=== PATIENT | male | born 1975 | race Caucasian/White ===

== ENCOUNTER 2016-07-13 16:59 | Emergency (ER) | payer MEDICAID, OTHER ==
[~2016-07-13] VITALS: Ht 188 cm; Wt 94.3 kg
[~2016-07-13 16:59] MED LIST: AMOX500C2 PO; HYDR-1189 PO; LISI-694 PO; LOSA25TA3 PO; METF1000 PO; NEU100 PO
[2016-07-13 17:06] VITALS: BP 143/86; PULSE 97; RESP 20; TEMP 98.2; O2SAT 96
--- NOTE | 2016-07-13 18:00 | NUR ---
Placed in room 03 . Placed on vehicle monitor technician, blood pressure machine and pulse oximeter. To gown for exam. Side rails up.
[2016-07-13 18:17] LABS: BASOPHILS % (AUTO) 0.6 % (0.0-2.0); EOSINOPHILS # (AUTO) 0.1 K/uL (0.0-0.4); EOSINOPHILS % (AUTO) 1.5 % (0.0-4.0); HEMATOCRIT 44.8 % (36-54); LYMPHOCYTES # (AUTO) 1.7 K/uL (1.0-5.5); MEAN CORPUSCULAR HEMOGLOBIN 29 pg (27-31); MEAN CORPUSCULAR HGB CONC 34 % (32-36); MEAN CORPUSCULAR VOLUME 86 fL (79.0-98.0); MONOCYTES # (AUTO) 0.9 K/uL (0.0-1.0); MONOCYTES % (AUTO) 11.4 % (1.7-9.3); NEUTROPHILS # (AUTO) 4.9 K/uL (1.8-7.7); NEUTROPHILS % (AUTO) 64.5 % (40.0-70.0); PLATELET COUNT (AUTO) 218 K/uL (130-430); RED BLOOD CELL COUNT(AUTO) 5.23 MIL/uL (4.2-6.2); RED CELL DISTRIBUTION WIDTH 11.8 % (9.0-15.0); WHITE BLOOD COUNT (AUTO) 7.6 K/uL (4.8-10.8)
[2016-07-13] MEDS ORDERED: KETOROLAC TROMETHAMINE 30 MG VIAL IVP ONE (18:30)
[2016-07-13] MEDS ORDERED: VANCOMYCIN HCL 1,000 MG in NS 250 ML IV ONE (18:30)
[2016-07-13 18:42] LABS: INR 0.9 (0.80-1.20); PROTHROMBIN TIME 10.2 SECS (9.5-12.5)
[2016-07-13 18:49] LABS: CREATININE 0.97 mg/dL (0.55-1.30); POTASSIUM 4.1 mmol/L (3.5-5.1)
[2016-07-13 19:02] LABS: ALBUMIN 3.7 g/dL (3.4-4.8); TOTAL BILIRUBIN 0.3 mg/dL (0.0-1.0); TOTAL PROTEIN, SERUM 7.8 g/dL (6.4-8.3)
--- NOTE | 2016-07-13 19:15 | NUR ---
Pt was on a hike two weeks ago and noticed his L foot was hurting and possibly infected. Pt is a diabetic. Pt states he cant put any weight on it. Will continue to monitor. No other injuries or complaints mentioned/noted. No distress noted.
[2016-07-13] MEDS ORDERED: INSULIN REGULAR, HUMAN 10 UNITS/0.1 ML INJ IVP ONE (19:30)
--- NOTE | 2016-07-13 19:30 | NUR ---
# 20 gauge angiocath placed to L forearm. Use of asceptic technique. Opsite placed over site. Blood return noted. Flushed with 10 cc of normal saline. No evidence of infiltration noted. Patient tolerated well.
--- NOTE | 2016-07-13 19:40 | NUR ---
ER Dr. Elizabeth at bedside examining patient.
[2016-07-13] MEDS ORDERED: VANCOMYCIN HCL 1000 MG/VIAL IV ONE (19:42)
--- NOTE | 2016-07-13 20:10 | NUR ---
Pt stated the levaquin was starting to itch. IV fluids stopped and Dr. Elizabeth notified.
[2016-07-13] MEDS ORDERED: DIPHENHYDRAMINE INJ 50 MG/ML VIAL ONE (20:23)
[2016-07-13] MEDS ORDERED: DIPHENHYDRAMINE INJ 50 MG/ML VIAL IVP ONE (20:30)
--- NOTE | 2016-07-13 22:45 | NUR ---
Pt unanle to give urine after given plenty of fluids. Dr. Elizabeth made aware.
[2016-07-13 23:00] VITALS: BP 149/60; PULSE 72; RESP 18; TEMP 97.6; O2SAT 96
--- NOTE | 2016-07-13 23:00 | NUR ---
Patient given written and verbal discharge instructions and verbalizes understanding. ER MD discussed with patient the results and treatment provided. Patient in stable condition. ID arm band removed. IV catheter removed intact and dressing applied, no active bleeding. Rx of Metformin, cipro, motrin, and bactrim given. Patient educated on pain management and to follow up with PMD. Pain Scale 0/10. Opportunity for questions provided and answered.
== END 2016-07-13 23:00 | disposition home or self-care (01) ==
LOC: SED 16:59
DX: L03.116 Cellulitis of left lower limb (principal); E11.40 Type 2 diabetes mellitus with diabetic neuropathy, unspecified; Z89.421 Acquired absence of other right toe(s)
CPT/HCPCS: 36415; 73630; 80053; 82962; 83605; 85025; 85610; 85730; 87040; 96365; 96366; 96368; 96375; 99285; J1200; J1885; J1956; J3370; J7050; J1815; J7030

== ENCOUNTER 2016-07-14 09:28 | Inpatient (IN) | payer MEDICAID ==
[~2016-07-14] VITALS: Ht 188 cm; Wt 94.3 kg
[2016-07-14 09:50] VITALS: BP 143/87; PULSE 84; RESP 16; TEMP 99.8; O2SAT 98
--- NOTE | 2016-07-14 09:50 | NUR ---
Patient to ER bed 5 to gown for evaluation. Side rails up. Assumed care of patient.
--- NOTE | 2016-07-14 09:55 | NUR ---
ER Dr. Jacob at bedside examining patient.
[2016-07-14] MEDS ORDERED: VANCOMYCIN HCL 1,000 MG in NS 250 ML IV ONE (10:00)
--- NOTE | 2016-07-14 10:30 | NUR ---
Pt brought by self , A&Ox4, pt c/o L foot ulcer, pain 5/10, skin pink and warm,cap refill <3, VSS, ambulatory. Hx of diabetes, pt seen in the ER yesterday, given antibiotics IV.
[2016-07-14 10:32] LABS: BASOPHILS % (AUTO) 0.5 % (0.0-2.0); EOSINOPHILS # (AUTO) 0.1 K/uL (0.0-0.4); EOSINOPHILS % (AUTO) 1.8 % (0.0-4.0); HEMATOCRIT 44.9 % (36-54); LYMPHOCYTES # (AUTO) 1.2 K/uL (1.0-5.5); LYMPHOCYTES % (AUTO) 18.7 % (20.5-51.5); MEAN CORPUSCULAR HEMOGLOBIN 29 pg (27-31); MEAN CORPUSCULAR HGB CONC 33 % (32-36); MEAN CORPUSCULAR VOLUME 86 fL (79.0-98.0); MONOCYTES # (AUTO) 0.6 K/uL (0.0-1.0); NEUTROPHILS # (AUTO) 4.6 K/uL (1.8-7.7); PLATELET COUNT (AUTO) 210 K/uL (130-430); RED BLOOD CELL COUNT(AUTO) 5.22 MIL/uL (4.2-6.2); RED CELL DISTRIBUTION WIDTH 11.8 % (9.0-15.0); WHITE BLOOD COUNT (AUTO) 6.5 K/uL (4.8-10.8)
[2016-07-14 10:36] LABS: CALCIUM 8.6 mg/dL (8.4-11.0); CREATININE 0.89 mg/dL (0.55-1.30); POTASSIUM 4.2 mmol/L (3.5-5.1)
[2016-07-14] MEDS ORDERED: VANCOMYCIN HCL 1000 MG/VIAL IV ONE (10:41)
[2016-07-14 10:42] LABS: ALBUMIN 3.6 g/dL (3.4-4.8); TOTAL BILIRUBIN 0.4 mg/dL (0.0-1.0); TOTAL PROTEIN, SERUM 7.5 g/dL (6.4-8.3)
[2016-07-14] MEDS ORDERED: INSULIN REGULAR, HUMAN 100 UNITS/ML, 10 ML VIAL IVP ONE (10:45)
[2016-07-14] MEDS ORDERED: NACL 0.9% 1,000 ML IV ONE (10:45)
[2016-07-14] MEDS ORDERED: INSULIN REGULAR, HUMAN 10 UNITS/0.1 ML INJ ONE (10:58)
--- NOTE | 2016-07-14 11:00 | NUR ---
Patient will be admitted to care of Dr Montejo. Admitted to Medsurg unit. Will go to room 135. Belongings list completed. Summary report printed. Report given to admitting RN .
--- NOTE | 2016-07-14 11:08 | NUR ---
ADMISSION: The patient, MYA WEBSTER, 41 y/o, M admitted by SEBASTIEN SLAUGHTER MD, was given written information regarding hospital policies, unit procedures and contact persons.
[2016-07-14 11:17] VITALS: BP 143/94; PULSE 78; RESP 17; TEMP 98.1; O2SAT 97
--- NOTE | 2016-07-14 11:30 | NUR ---
admission notes rec patient from er with a dx of diabetic foot ulcer. awake alert with ivpb of vanco infusing well from er. pt stated that he went hiking 2 weeks ago and started to having pain on his l plantar foot. no drainage noted. admission care rendered. resp easy and unlabored. no sob noted. bed in low position and side rails up and locked. call light provided and know when to call for assists.
--- NOTE | 2016-07-14 11:55 | NUR ---
MD CALL Dr Zane lincoln, awaiting call back for pain medications.
[2016-07-14] MEDS ORDERED: DEXTROSE 50% JECT 50 ML DISP.SYRIN IVP PRN (12:15)
[2016-07-14] MEDS ORDERED: PIPERACILLIN/TAZO 3.375/DEX-IS 50 ML IV ONE (12:45)
[2016-07-14] MEDS ORDERED: LACTOBACILLUS RHAMNOSUS GG 1 CAP CAPSULE PO ONE (12:45)
[2016-07-14] MEDS: INSULIN REGULAR, HUMAN 100 UNITS/ML, 10 ML VIAL (novoLIN R) SUBCUT PRN ×3 (13:13→23:11)
[2016-07-14] MEDS: VANCOMYCIN HCL 1,250 MG in NS 250 ML IV SCH ×2 (15:18→22:04)
[2016-07-14] MEDS ORDERED: MORPHINE 2 MG/ML INJ. SYRINGE IVP PRN (15:45)
[2016-07-14] MEDS ORDERED: ONDANSETRON HCL 4 MG/2 ML VIAL IVP PRN (15:45)
[2016-07-14 16:00] VITALS: BP 145/89; PULSE 75; RESP 18; TEMP 97.5; O2SAT 97
--- NOTE | 2016-07-14 16:00 | NUR ---
Wound Consult: Wound consult request per Dr. Degroot. Thank you, Dr. Degroot, for the consult. Patient is awake, alert, and oriented. Skin is Good (-). Rogerio score is a 20. Patient received in a [place] bed with an Atmos-Air 9000 mattress. Past medical history: Diabetes Mellitus, Left Foot Diabetic Ulcers, Diabetic Neuropathy, and Hypertension. Current labs: WBC 6.5, RBC 5.22, Hgb 15.0, Hct 44.9, Gluc 467, Na 132. Intrinsic factors that delay wound healing: Diabetes Mellitus. Extrinsic factors: decreased mobility. Blood culture x 2 pending. Patient presents with: 1. Left Foot Appears to be a Diabetic Ulcer, present on admission. Wound bed is 95% pink tissue, 5% black eschar. Mary Jo-wound pink. No odor, no drainage. Surrounding tissue is calloused. Dry, stable. Recommend: Cleanse wound with normal saline. Pat dry. Put SurePrep onto mary jo-wound. Cover with foam dressing. Perform wound care daily, and as needed for dressing soiling or dislodgment. 2. 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 No odor, no drainage. Recommend: No dressing needed. Continue to monitor site for opening or worsening condition. Elevate offload, and float area at all times. Also recommend: Encourage and assist patient as needed with repositioning every 2 hours with pillow support, and off-load heels and pressure areas with pillows for pressure redistribution. Maintain non-weight bearing on left foot where wound is.
--- NOTE | 2016-07-14 16:00 | NUR ---
paul quintanilla wound nurse at bedside and assess pt's wound on the left plantar area. dressing care rendered. dr liriano at bedside and with orders. offered pain med but refused at this time.
--- NOTE | 2016-07-14 16:56 | NUR ---
CONSULTS CONSULT #1 ID CONSULT Spoke with Nupur regarding request for consultation with Dr. Rodriguez ([phone]) for reason: D.M foot ulcer r/o osteo. CONSULT #2 SURGICAL CONSULT Spoke with junito regarding request for consultation with Dr. Gray ([phone]) for reason: D.M foot ulcer r/o osteo. Transferred call to GUANAKITO.
[2016-07-14] MEDS: MORPHINE 4 MG/ML INJ. SYRINGE IVP PRN ×2 (17:41→23:00)
[2016-07-14] MEDS: PIPERACILLIN/TAZO 3.375/DEX-IS 50 ML IV SCH ×2 (18:00→23:06)
--- NOTE | 2016-07-14 18:00 | NUR ---
rounds requested for pain med and was given by meka corbin. due abx will be given as ordered. no hypo hyperglycemic reaction noted. no sob noted.
--- NOTE | 2016-07-14 18:41 | NUR ---
closing notes needs attended, stable. denies pain at this time. uses the bathroom with min assists and ankita well. no acute distress noted.
--- NOTE | 2016-07-14 19:40 | NUR ---
PM SHIFT ASSESSMENT Received patient in bed, aox4, vital signs stable. Denies any left foot pain at this time. Left foot with dressing CDI. IV line to left forearm intact and patent, no signs of infiltration noted. POC discussed with patient, verbalized understanding, compliant. Oriented to use call light for nurse assistance. Call light within reach, safety measures in place, will continue to monitor.
[2016-07-14 20:00] VITALS: BP 161/96; PULSE 78; RESP 20; TEMP 98; O2SAT 97
--- NOTE | 2016-07-14 20:30 | NUR ---
Paged Dr. Degroot, called back and new orders for Restoril 15 mg every Hs given for patient. Will carry out.
[2016-07-14] MEDS: LACTOBACILLUS RHAMNOSUS GG 1 CAP CAPSULE PO SCH (20:45)
[2016-07-14] MEDS: TEMAZEPAM 15 MG CAPSULE PO SCH (20:45)
--- NOTE | 2016-07-14 22:08 | NUR ---
RN ROUNDS Patient asleep, respirations even and unlabored, due medications given earlier. Restoril 15 mg po given to help promote sleep, safety measures in place, call light within reach, will continue to monitor
--- NOTE | 2016-07-14 23:21 | NUR ---
RN ROUNDS/PAIN Patient awake, c/o of pain, medicated with morphine 4 mg IVP for pain management. Educated on fall and safety precautions. Patient verbalized understanding. Due antibiotics administered. Blood sugar check this pm of 296. covered with regular insulin sliding scale per Md order. Call light within reach, will continue to monitor.
--- NOTE | 2016-07-15 00:36 | NUR ---
RN ROUNDS Patient asleep, respirations even and unlabored, vital signs stable. IV antibiotics infusing. Call light remains within reach, will continue to monitor.
[2016-07-15 01:27] VITALS: BP 140/84; PULSE 69; RESP 17; TEMP 98.7; O2SAT 96
--- NOTE | 2016-07-15 02:18 | NUR ---
RN ROUNDS Patient continues to sleep, respirations even and unlabored, safety measures in place, call light remains within reach, will continue to monitor.
[2016-07-15 04:00] VITALS: BP 127/72; PULSE 69; RESP 18; TEMP 97.9; O2SAT 97
--- NOTE | 2016-07-15 04:22 | NUR ---
RN ROUNDS Patient continues to sleep, respirations even and unlabored, vitals stable. Safety measures in place, call light remains within reach, will continue to monitor.
[2016-07-15] MEDS: PIPERACILLIN/TAZO 3.375/DEX-IS 50 ML IV SCH ×3 (05:18→18:06)
[2016-07-15] MEDS: VANCOMYCIN HCL 1,250 MG in NS 250 ML IV SCH ×3 (05:18→22:22)
[2016-07-15] MEDS: ACETAMINOPHEN 325 MG TABLET PO PRN ×2 (05:28→08:54)
--- NOTE | 2016-07-15 05:35 | NUR ---
RN ROUNDS Patient awake, c/o of headache, medicated with Tylenol for pain management, will reassess shortly. Wound care done to left foot diabetic ulcer. Cleaned with NS, applied sure prep to wound and covered with foam dressing. Patient tolerated well.
[2016-07-15] MEDS: INSULIN REGULAR, HUMAN 100 UNITS/ML, 10 ML VIAL (novoLIN R) SUBCUT PRN ×3 (06:02→18:08)
--- NOTE | 2016-07-15 06:11 | NUR ---
RN ROUNDS Patient awake, blood sugar this am of 240, covered with regular insulin sliding scale. IV line intact and patent, IV antibiotics infusing, Patient needs attended to, safety and fall precautions maintained, through out the shift, call light remains within reach, will continue to monitor until report given to am nurse.
[2016-07-15 08:00] VITALS: BP 138/88; PULSE 86; RESP 20; TEMP 98.1; O2SAT 96
--- NOTE | 2016-07-15 08:00 | NUR ---
OPENING NOTE PATIENT IS C/O SEVERE HEADACHE THROUGHOUT THE NIGHT WHICH HE BELIEVES IS CAUSED BY MORPHINE. WAS MEDICATED AT [address] SLAUGHTER PAGED FOR NEW PAIN CONTROL ORDERS
[2016-07-15] MEDS: LACTOBACILLUS RHAMNOSUS GG 1 CAP CAPSULE PO SCH ×2 (08:55→22:06)
--- NOTE | 2016-07-15 09:30 | NUR ---
MEDICATED WITH TYLENOL FOR HEADACHE
--- NOTE | 2016-07-15 10:30 | NUR ---
REASSESSMENT: HEADACHE NOW 07/10
--- NOTE | 2016-07-15 12:35 | NUR ---
DR SLAUGHTER IN TO SEE PATIENT. PER PATIENT DR SLAUGHTER OFFERED TO ADD DILAUDID TO HIS REGIME FOR THE HEADACHE
--- NOTE | 2016-07-15 12:45 | NUR ---
SPOKE WITH KONG ABOUT BG MONITORING. PT STATES HE HAS NOT CHECKED HIS OWN BG IN OVER A YEAR. HE STATES HE KNOWS WHAT HIGH AND LOW BG LOOK/FEEL LIKE AND RELIES ON HOW HE FEELS. STATES HIS FATHER IS ALSO A DIABETIC AND THEY HAVE SIMILAR SYMPTOMS. TAUGHT PT THAT BG SHOULD BE UNDER 150-120 WHILE AT HOME AND THAT THERE IS NO WA OF KNOWING HIS ACTUAL BG WITHOUT CHECKING HIS BLOOD. TOLD PT THAT WHAT WAS HAPPENING TO HIS FEET WAS ALSO HAPPENING TO HIS KIDNEYS, EYES AND HEART AND HE WOULD BE A VERY SICK MAN VERY SOON. PATIENT ALSO STATED HE IS [employer] FROM [place] AND IS IN A TREATMENT PROGRAM AND WANTS TO LEAD A HEALTHIER LIFESTYLE. BG CURRENTLY 323. COVERED WITH 8 UNITS OF INSULIN
[2016-07-15 13:00] VITALS: BP 137/94; PULSE 82; RESP 16; TEMP 97.6; O2SAT 98
--- NOTE | 2016-07-15 13:45 | NUR ---
DR SLAUGHTER PAGED FOR ORDERS FOR DILAUDID. NO ORDERS HAVE BEEN ENTERED.
[2016-07-15 15:32] VITALS: Ht 188 cm; Wt 94.3 kg
--- NOTE | 2016-07-15 16:45 | NUR ---
DR SINCLAIR IN TO SEE PATIENT. EXPLAINED TO HIM THAT PATIENT BELIEVES MORPHINE IS CAUSING HIS HEADACHES AND WANTS DILAUDID. ORDERS FOR 2MG DILAUDID Q4PRN GIVEN. DR SINCLAIR ALSO STATED PATIENT IS ON SCHEDULE FOR [address] ON 07/[address] SINCLAIR ASKED ME TO ENTER ORDERS FOR PREOP CHECKLIST AND DME FOR WOUND VAC.
[2016-07-15 17:01] VITALS: BP 117/71; PULSE 80; RESP 17; TEMP 97.2; O2SAT 96
--- NOTE | 2016-07-15 18:05 | NUR ---
PATIENT MEDICATED WITH 5 UNITS OF REGULAR INSULIN FOR BG OF 262. ANTIBIOTICS HUNG PER PROTOCOL
[2016-07-15 18:22] LABS: PROTHROMBIN TIME 10.5 SECS (9.5-12.5)
[2016-07-15] MEDS: HYDROmorphone 2 MG/ML VIAL IVP PRN ×2 (18:37→22:23)
--- NOTE | 2016-07-15 19:48 | NUR ---
CARE ENDORSED TO GUANAKITO COTTON. PATIENT NOW STATES HIS PAIN IS A 0/10. STATES HEADACHE IS GONE WELL. PATIENT REMAINS ALERT, ORIENTED NO SIGNS OF DISTRESS. ENDORSED SIGNED CONSENT AND PREOP CHECKLIST HAS BEEN STARTED. PT NEEDS UA AND WILL BE NPO AFTER MN, SCHEDULED FOR 729 SURGERY TO LEFT FOOT WITH POSSIBLE WOUND VAC APPLICATION.
--- NOTE | 2016-07-15 20:00 | NUR ---
ROUNDS PATIENT RESTING COMFORTABLY IN BED, VITALS STABLE, DENIES ANY PAIN AND DISCOMFORT AT THIS TIME. ASSESSMENT DONE AND DOCUMENTED AT THIS TIME. SEE FLOWSHEET. NEEDS ATTENDED TO. SAFETY AND FALL PRECAUTION MEASURES IN PLACED. BED IN LOW AND LOCKED POSITION. CALL LIGHT PLACED WITHIN REACH.
[2016-07-15] MEDS: TEMAZEPAM 15 MG CAPSULE PO SCH (21:00)
--- NOTE | 2016-07-15 21:00 | NUR ---
MEDICATION DUE MEDICATIONS GIVEN ORDERED, TOLERATED WELL. WILL CONTINUE TO MONITOR.
[2016-07-16] VITALS: BP 144/87; PULSE 73; RESP 16; TEMP 98.4; O2SAT 92
--- NOTE | 2016-07-16 | NUR ---
PATIENT RESTING: Patient resting quietly. No acute distress noted. Vital signs within normal range.
[2016-07-16] MEDS: PIPERACILLIN/TAZO 3.375/DEX-IS 50 ML IV SCH ×4 (00:26→17:10)
--- NOTE | 2016-07-16 02:00 | NUR ---
ROUNDS PATIENT ASLEEP, NO SOB NOTED, WILL CONTINUE TO MONITOR.
[2016-07-16 03:30] VITALS: BP 123/81; PULSE 81; RESP 18; TEMP 98.3; O2SAT 97
--- NOTE | 2016-07-16 04:00 | NUR ---
PATIENT RESTING: Patient resting quietly. No acute distress noted. Vital signs within normal range.
[2016-07-16] MEDS: HYDROmorphone 2 MG/ML VIAL IVP PRN ×4 (06:03→21:19)
[2016-07-16] MEDS: VANCOMYCIN HCL 1,250 MG in NS 250 ML IV SCH ×3 (06:14→22:30)
--- NOTE | 2016-07-16 07:20 | NUR ---
CLOSING NOTES PATIENT WAKE, VITALS STABLE, GAVE REPORT TO O. R. NURSE BEDSIDE. ALL NEEDS ATTENDED TO. SAFETY MEASURES MAINTAINED. PATIENT BROUGHT TO O.R. FOR HIS SCHEDULED DEBRIDEMENT ON HIS LEFT FOOT.
[2016-07-16 07:42] VITALS: BP 145/96; PULSE 95; RESP 18; TEMP 97.2; O2SAT 94
[2016-07-16] MEDS ORDERED: LR 1,000 ML IV ONE (07:54)
[2016-07-16] MEDS ORDERED: NALOXONE HCL 0.4 MG/ML AMP (NARCAN) IVP PRN (08:00)
[2016-07-16] MEDS ORDERED: NALBUPHINE HCL 10 MG/ML AMP IVP PRN (08:00)
[2016-07-16] MEDS ORDERED: ePHEDrine sulfate 50 MG/ML VIAL IVP PRN (08:00)
[2016-07-16] MEDS ORDERED: fentaNYL CITRATE/PF 100 MCG/2 ML AMP IVP PRN (08:00)
[2016-07-16] MEDS ORDERED: DIPHENHYDRAMINE INJ 50 MG/ML VIAL IVP PRN (08:00)
[2016-07-16] MEDS ORDERED: ONDANSETRON HCL 4 MG/2 ML VIAL IVP PRN ×2 (08:00)
--- NOTE | 2016-07-16 08:00 | NUR ---
PT IN BED, REPORT RECEIVED FROM NIGHT NURSE, PT IS AAO, IV ACCESS PATENT, PT NPO FOR DEBRIDEMENT OF FOOT WOUND. SURGERY NURSES AT BEDSIDE.
[2016-07-16] MEDS: LACTOBACILLUS RHAMNOSUS GG 1 CAP CAPSULE PO SCH ×2 (09:16→22:30)
--- NOTE | 2016-07-16 09:26 | NUR ---
DISCHARGE PLANNING DC order to arrange wound vac and home health. Confirmed contracted vendor for requested DME. [phone]. Wound care nurse was given copy of order and [facility] order form that needs to be completed, signed, and faxed to [facility]. Home Health not covered benefit under patient insurance. Called follow home health to obtain out of pocket quotes for patient. [facility] $120.00 PER VISIT [facility] $200.00 Initial visit $150.00 per visit after initial [facility] $200.00 Initial visit $175.00 per visit after initial. Will also provide patient with copy of local critical access hospital for follow up if unable to pay out of pocket for home health. Addendum: 07/16/16 at 1159 by Reema Hodges DP Per wound care nurse no wound vac placed. Called [facility] [phone] spoke with [place] who cancelled DME order for wound vac.
--- NOTE | 2016-07-16 10:00 | NUR ---
pt in bed, no sob, no distress, vitals are stable, c/o of little pain on the foot, told pt that pain med can be provided as needed.
--- NOTE | 2016-07-16 11:20 | NUR ---
Wound Re-Evaluation: Patient is awake, alert, and oriented. Skin is Good (-). Rogerio score is a 19. Patient received in a [place] bed with an Atmos-Air 9000 mattress. Intrinsic factors that delay wound healing: Diabetes Mellitus. Extrinsic factors: decreased mobility. Blood culture x 2, MRSA Screen, and Wound Culture results pending. Patient is status post surgical debridement by Dr. Gray this morning. Per GUANAKITO Jaime, O.R. informed him that Dr. Gray was not going to order a wound vac, as the wound was superficial in depth. Patient presents with: 1. Left Foot Appears to be a Diabetic Ulcer, present on admission. Surgical dressing was clean, dry, and intact. No orders received for nursing wound care. Dr. Gray will do first dressing change. Recommend: Reinforce dressing as needed. 2. 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 No odor, no drainage. Recommend continue: No dressing needed. Continue to monitor site for opening or worsening condition. Elevate offload, and float area at all times. Also recommend continue: Encourage and assist patient as needed with repositioning every 2 hours with pillow support, and off-load heels and pressure areas with pillows for pressure redistribution. Maintain non-weight bearing on left foot where wound is located.
[2016-07-16] MEDS: INSULIN REGULAR, HUMAN 100 UNITS/ML, 10 ML VIAL (novoLIN R) SUBCUT PRN ×2 (11:22→17:12)
[2016-07-16 12:00] VITALS: BP 125/75; PULSE 82; RESP 18; TEMP 97.2; O2SAT 94
--- NOTE | 2016-07-16 12:00 | NUR ---
pt in bed, no c/o pain, dressing on left foot dry and intact, all needs provided.
[2016-07-16] MEDS ORDERED: PROPOFOL 200MG/ 20ML VIAL (DIPRIVAN) IV ONE (14:00)
[2016-07-16] MEDS ORDERED: MIDAZOLAM HCL 5 MG/5 ML VIAL ONE (14:00)
[2016-07-16] MEDS ORDERED: KETOROLAC TROMETHAMINE 30 MG VIAL ONE (14:00)
[2016-07-16] MEDS ORDERED: SEVOFLURANE 15 MIN GAS INH ONE (14:00)
[2016-07-16] MEDS ORDERED: fentaNYL CITRATE/PF 100 MCG/2 ML AMP ONE (14:00)
[2016-07-16] MEDS ORDERED: NS 1000 ML BAG IV ONE (14:00)
[2016-07-16] MEDS ORDERED: WATER FOR IRRIGATION,STERILE 1,000 ML IRRIG.SOLN IR ONE (14:00)
[2016-07-16] MEDS ORDERED: METOCLOPRAMIDE HCL 10 MG/2 ML VIAL ONE (14:00)
--- NOTE | 2016-07-16 14:00 | NUR ---
pt in bed, no c/o pain, resting comfortably, no s/sx distress, no sob. will cont to mnitor, left foot dressing dry and intact, no bleeding
[2016-07-16 14:51] VITALS: TEMP 97.8
[2016-07-16 16:00] VITALS: BP 135/79; PULSE 85; RESP 18; TEMP 97.5; O2SAT 95
--- NOTE | 2016-07-16 16:00 | NUR ---
PT IN BED, RESTING COMFORTABLE, NO SOB, NO DISTRESS. ON HIS CELLPHONE
--- NOTE | 2016-07-16 18:00 | NUR ---
notes pt in bed, no c/o pain, no sob, no distress. no pain this time.
--- NOTE | 2016-07-16 19:15 | NUR ---
CLOSING NOTES, PT HAS BEEN STABLE THE WHOLE SHIFT, PAIN ASSESSED AND GIVEN PAIN MEDS REQUESTED. NO FEVER.
--- NOTE | 2016-07-16 20:00 | NUR ---
ROUNDS PATIENT RESTING COMFORTABLY IN BED, NOT IN DISTRESS, VITALS STABLE. DENIES ANY PAIN AND DISCOMFORT AT THIS TIME. ASSESSMENT DONE AND DOCUMENTED. SEE FLOWSHEET. NEEDS ATTENDED TO. SAFETY MEASURES IN PLACED. CALL LIGHT PLACED WITHIN REACH.
[2016-07-16] MEDS: TEMAZEPAM 15 MG CAPSULE PO SCH (21:00)
--- NOTE | 2016-07-16 21:10 | NUR ---
MEDICATION DUE MEDICATIONS GIVEN SCHEDULED, TOLERATED WELL. WILL CONTINUE TO MONITOR.
--- NOTE | 2016-07-17 | NUR ---
PATIENT RESTING: Patient resting quietly. No acute distress noted. Vital signs within normal range.
[2016-07-17 00:03] VITALS: BP 144/91; PULSE 84; RESP 20; TEMP 99.1; O2SAT 96
[2016-07-17] MEDS: PIPERACILLIN/TAZO 3.375/DEX-IS 50 ML IV SCH ×4 (00:33→17:44)
[2016-07-17] MEDS: INSULIN REGULAR, HUMAN 100 UNITS/ML, 10 ML VIAL (novoLIN R) SUBCUT PRN ×4 (00:33→17:42)
--- NOTE | 2016-07-17 02:15 | NUR ---
ROUNDS ASLEEP, NO SOB NOTED, WILL CONTINUE TO MONITOR.
--- NOTE | 2016-07-17 04:00 | NUR ---
PATIENT RESTING: Patient resting quietly. No acute distress noted. Vital signs within normal range.
[2016-07-17 04:43] VITALS: BP 136/79; PULSE 82; RESP 20; TEMP 98.9; O2SAT 96
[2016-07-17] MEDS: HYDROmorphone 2 MG/ML VIAL IVP PRN ×4 (05:17→20:56)
[2016-07-17] MEDS: VANCOMYCIN HCL 1,250 MG in NS 250 ML IV SCH ×3 (06:22→20:57)
--- NOTE | 2016-07-17 06:50 | NUR ---
CLOSING NOTES PATIENT ASLEEP, VITALS STABLE, NO PAIN AND DISCOMFORT AT THIS TIME. ALL NEEDS ATTENDED TO. SAFETY MEASURES MAINTAINED. CALL LIGHT PLACED WITH PATIENT.
--- NOTE | 2016-07-17 07:45 | NUR ---
am rounds pt. still asleep change of shift.
[2016-07-17 08:15] VITALS: BP 161/94; PULSE 90; RESP 20; TEMP 98.4; O2SAT 96
--- NOTE | 2016-07-17 08:15 | NUR ---
pt. awake, alert, oriented x4. S/P debridement of wound on left foot, dressing dry and intact.IVF on left forearm . pt. said he went to the restroom himself and voided.c/o pain on left foot, med not due yet, nurse Addison talked to pt. about it.
[2016-07-17] MEDS: LACTOBACILLUS RHAMNOSUS GG 1 CAP CAPSULE PO SCH ×2 (08:55→20:56)
[2016-07-17] MEDS: ACETAMINOPHEN 325 MG TABLET PO PRN (08:56)
--- NOTE | 2016-07-17 10:55 | NUR ---
Dr. Degroot here at bedside, talking to pt. about transitional care for IV antibiotics, informed pt. about PICC line. nurse Addison turcios.
[2016-07-17 12:20] VITALS: BP 157/99; PULSE 91; RESP 18; TEMP 98.8; O2SAT 98
[2016-07-17 12:34] LABS: INR 0.9 (0.80-1.20)
--- NOTE | 2016-07-17 13:00 | NUR ---
ROUNDS: pt. sleeping.no complaints manifested.
--- NOTE | 2016-07-17 16:00 | NUR ---
NOTES: pt. awake, watching TV. c/o left foot pain and medicated. instructed urine specimen needed for test, urine cup provided.
[2016-07-17 16:52] VITALS: BP 137/74; PULSE 85; RESP 18; TEMP 97.6; O2SAT 95
--- NOTE | 2016-07-17 16:56 | NUR ---
NOTES: PICC line nurse called and verified order, consent signed , platelet ct and INR result aware.
[2016-07-17 18:20] LABS: BILIRUBIN,URINE NEGATIVE (NEGATIVE); CLARITY/URINE SL CLOUDY (CLEAR); COLOR,URINE YELLOW (YELLOW); GLUCOSE,URINE 3+ (NEGATIVE); KETONES,URINE NEGATIVE (NEGATIVE); LEUKOCYTE ESTERASE ,URINE NEGATIVE (NEGATIVE); NITRITE, URINE NEGATIVE (NEGATIVE); PH,URINE 6.5 (5.0-8.0); PROTEIN URINE NEGATIVE (NEGATIVE); UROBILINOGEN,URINE 0.2 (0.2-1.0)
[2016-07-17 18:23] LABS: BLOOD, URINE TRACE (NEGATIVE)
[2016-07-17 18:43] LABS: BACTERIA,URINE FEW /HPF (None Seen); MUCUS,URINE None Seen /LPF (None Seen); RBC,URINE 0-3 /HPF (0-3); WBC,URINE NONE SEEN /HPF (0-3)
--- NOTE | 2016-07-17 18:52 | NUR ---
CLOSING NOTES: pt. remains, awake, alert, oriented, left foot dressing intact. noted relief of pain after pain med given. urine sent for U/A as ordered. informed about change of shift. call light within reach. no acute distress.
--- NOTE | 2016-07-17 19:20 | NUR ---
pt. endorsed to incoming shift with nurse Castellano.
[2016-07-17 19:30] VITALS: BP 134/78; PULSE 81; RESP 17; TEMP 98.8; O2SAT 94
--- NOTE | 2016-07-17 19:30 | NUR ---
INITIAL NOTE PT.RECEIVED AAOX4, NO S/S OF SOB OR DISTRESS NOTED. VSS. PT. STATES HE IS HAVING PAIN, WILL MEDICATE FOR PAIN ORDERED. IV ACCESS NOTED TO LFA, 20 GAUGE, TKO. NO REDNESS OR SWELLING AT THE SITE. PT. AWARE THAT PICC NURSE WILL BE IN THIS EVENING TO START A PICC LINE. DRESSING TO LEFT HEEL IS DRY AND INTACT. PLAN OF CARE DISCUSSED, VERBALIZES UNDERSTANDING. WILL CONTINUE TO MONITOR FOR ANY CHANGES. SAFETY AND FALL PRECAUTIONS IN PLACE. CALL LIGHT IN REACH, BED ALARM ON.
--- NOTE | 2016-07-17 20:00 | NUR ---
RN NOTES PICC LINE NURSE AT THE BEDSIDE TO START PICC LINE. TIME OUT DONE. WILL CHECK ON PT. FOLLOWING PROCEDURE.
[2016-07-17] MEDS: TEMAZEPAM 15 MG CAPSULE PO SCH (20:55)
--- NOTE | 2016-07-17 22:04 | NUR ---
ROUNDS PT. RESTING IN BED WITH EYES CLOSED, CHEST RISE AND FALL NOTED. NO S/S OF DISTRESS OR SOB AT THIS TIME. IV ANTIBIOTIC INFUSING WELL ORDERED, NO ADVERSE REACTIONS NOTED. DRESSING TO LEFT FOOT REMAINS DRY AND INTACT. WILL CONTINUE TO MONITOR FOR ANY CHANGES. SAFETY AND FALL PRECAUTIONS IN PLACE, CALL LIGHT IN REACH, BED ALARM ON.
[2016-07-18] VITALS (7 sets, daily range): BP systolic 125–140; BP diastolic 69–88; PULSE 64–86; RESP 18–20; TEMP 97.7–99; O2SAT 93–97
--- NOTE | 2016-07-18 00:30 | NUR ---
ROUNDS PT. RESTING IN BED. NO S/S OF SOB OR DISTRESS AT THIS TIME. PT. ACCU CHECK DONE, BLOOD SUGAR 231, 4 UNITS OF REGULAR INSULIN GIVEN PER SLIDING SCALE. IV ZOSYN INFUSING WELL, NO ADVERSE REACTIONS NOTED. VSS. WILL CONTINUE TO MONITOR. SAFETY AND FALL PRECAUTIONS IN PLACE, CALL LIGHT IN REACH.
[2016-07-18] MEDS: INSULIN REGULAR, HUMAN 100 UNITS/ML, 10 ML VIAL (novoLIN R) SUBCUT PRN ×4 (00:36→17:56)
[2016-07-18] MEDS: PIPERACILLIN/TAZO 3.375/DEX-IS 50 ML IV SCH ×4 (00:36→17:54)
--- NOTE | 2016-07-18 02:01 | NUR ---
ROUNDS PT. RESTING IN BED WITH EYES CLOSED. CHEST RISE AND FALL NOTED. NO S/S OF SOB OR DISTRESS NOTED. NO FACIAL GRIMACING INDICATING ANY PAIN. WILL CONTINUE TO MONITOR FOR ANY CHANGES. SAFETY AND FALL PRECAUTIONS IN PLACE. CALL LIGHT IN REACH, BED ALARM ON.
--- NOTE | 2016-07-18 04:00 | NUR ---
ROUNDS PT. RESTING IN BED WITH EYES CLOSED, EASILY AWAKENS. VSS. NO S/S OF SOB OR DISTRESS NOTED. WILL CONTINUE TO MONITOR FOR ANY CHANGES. SAFETY AND FALL PRECAUTIONS IN PLACE. CALL LIGHT IN REACH, BED ALARM ON.
[2016-07-18] MEDS: VANCOMYCIN HCL 1,250 MG in NS 250 ML IV SCH ×3 (05:51→23:20)
--- NOTE | 2016-07-18 06:30 | NUR ---
CLOSING NOTE PT. RESTING IN BED WITH EYES CLOSED. EASILY AWAKENS. BLOOD SUGAR THIS AM WAS 235, 4 UNITS OF REGULAR INSULIN WERE GIVEN PER SLIDING SCALE. IV VANCO INFUSING WELL ORDERED, NO ADVERSE REACTIONS NOTED. ALL NECESSARY NEEDS WERE MET. SAFETY AND FALL PRECAUTIONS WERE MAINTAINED. WILL ENDORSE CARE TO AM NURSE. CALL LIGHT IN REACH, BED ALARM ON.
--- NOTE | 2016-07-18 08:00 | NUR ---
Initial note pt sitting up in bed, meal tray set up for breakfast, vss, no s/s of distress noted, complains of pain 11/09. will follow up with pain medication. iv noted to LFA saline locked, PICC site to right forearm saline locked, dressing clean dry and intact, good blood return noted. dressing to left heel clean dry and intact, plan of care discussed with patient, patient verbalized understanding, pt reoriented to use of call light and it is placed within reach, safety measures in place, bed in low position and locked, will follow up.
[2016-07-18] MEDS: LACTOBACILLUS RHAMNOSUS GG 1 CAP CAPSULE PO SCH ×2 (09:10→20:57)
[2016-07-18] MEDS: HYDROmorphone 2 MG/ML VIAL IVP PRN ×4 (09:11→23:26)
--- NOTE | 2016-07-18 10:30 | NUR ---
rounds pt laying in bed, resting, easy to arouse, pt states he has no needs at this time, safety measures in place, bed in low position and locked, call light within reach, will follow up.
--- NOTE | 2016-07-18 12:00 | NUR ---
ACCUCHECK 241, COVERED PER SLIDING SCALE
--- NOTE | 2016-07-18 13:13 | NUR ---
rounds pt assisted to restroom with crutch, pt moves around well with crutch to stabilize. pt returned to bed, safety [id number] in place, call light with in reach. will follow up.
--- NOTE | 2016-07-18 15:00 | NUR ---
ROUNDS PT LAYING IN BED, RESTING, TV ON, EYES CLOSED, EASY TO AROUSE, NO COMPLAINT OF PAIN AT THIS TIME, PT STATES HE HAS NO NEEDS AT THIS TIME, WILL FOLLOW UP.
--- NOTE | 2016-07-18 17:30 | NUR ---
ACCUCHECK 302, COVERED PER SLIDING SCALE
[2016-07-18] MEDS: NEOMY SULF/BACITRAC ZN/POLY 14.2 GM OINT..GM. TP SCH (17:54)
--- NOTE | 2016-07-18 18:17 | NUR ---
WOUND CARE PER DR SINCLAIR, DRESSING WAS REMOVED, CLEANSED WITH NORMAL SALINE, PAT DRY, TRIPLE ANTIBIOTIC APPLIED TO WOUND BED, COVERED WITH NONADHERENT DRESSING, WRAPPED WITH CLING WRAP. PT TOLERATED WELL. SAFETY MEASURES IN PLACE, BED IN LOW POSITION, CALL LIGHT WITHIN REACH.
--- NOTE | 2016-07-18 19:30 | NUR ---
CLOSING NOTE REPORT GIVEN TO WISAM ADHIKARI. PT LAYING IN BED, NO S/S OF DISTRESS OR COMPLAINT OF PAIN AT THIS TIME, VSS, PICC DRESSING INTACT, SALINE LOCKED, NO S/S OF INFILTRATION NOTED. DRESSING TO LEFT LOWER EXTREMITY CLEAN DRY AND INTACT. ALL NEEDS ATTENDED TO THROUGH OUT SHIFT, SAFETY MEASURES MAINTAINED, BED IN LOW POSITION AND LOCKED, CALL LIGHT WITHIN REACH, WILL ENDORSE CARE TO FOLLOWING SHIFT.
--- NOTE | 2016-07-18 20:00 | NUR ---
NOTES; SEEN PT IN BED, A/A/O X4, WATCHING TV. NO ACUTE DISTRESS NOTED. VITAL SIGNS STABLE, AFEBRILE. LEFT FIFTH TOE AMPUTATION WITH DRESSING CLEAN,DRY, AND INTACT. PEDAL PULSES PALPABLE. RT UPPER ARM PICC LINE WITH DRESSING CLEAN,DRY, AND INTACT. LEFT FOREARM IV SALINE LOCK NOTED. PT REQUESTING IV SALINE LOCK TO BE REMOVED. DENIES ANY PAIN AT THIS TIME. INSTRUCTED PT ON THE USE OF CALL LIGHT. PT VERBALIZED UNDERSTANDING. BED LOCKED AND IN LOW POSITION, SIDE RAILS UP X3. CALL LIGHT WITHIN REACH. WILL CONTINUE TO MONITOR.
[2016-07-18] MEDS: TEMAZEPAM 15 MG CAPSULE PO SCH (20:57)
--- NOTE | 2016-07-18 21:04 | NUR ---
NOTES; SCHEDULED PO MEDICATION ADMINISTERED. PT TOLERATED MEDS WELL.
--- NOTE | 2016-07-18 23:00 | NUR ---
NOTES; IN BED WATCHING TV. NO ACUTE DISTRESS NOTED. SAFETY MEASURES IN PROGRESS. WILL CONTINUE TO MONITOR.
[2016-07-19] MEDS: PIPERACILLIN/TAZO 3.375/DEX-IS 50 ML IV SCH ×5 (00:37→23:57)
--- NOTE | 2016-07-19 00:38 | NUR ---
NOTES; PT RESTING IN BED WITH EYES CLOSED. CHEST RISE AND FALL NOTED. RESPIRATION EVEN AND UNLABORED. CALL LIGHT WITHIN REACH. SAFETY MEASURES IN PROGRESS.
[2016-07-19] MEDS: INSULIN REGULAR, HUMAN 100 UNITS/ML, 10 ML VIAL (novoLIN R) SUBCUT PRN ×5 (00:51→23:58)
--- NOTE | 2016-07-19 00:53 | NUR ---
NOTES; BLOOD SUGAR FOUND TO BE 216. INSULIN ADMINISTERED PER SLIDING SCALE ORDER.
--- NOTE | 2016-07-19 02:00 | NUR ---
NOTES; APPEARED TO BE SLEEPING, EYES CLOSED. RESPIRATION EVEN AND UNLABORED. NO ACUTE DISTRESS NOTED. SAFETY MEASURES IN PROGRESS. DIRECT OBSERVER AT BEDSIDE AT ALL TIMES. Addendum: 07/19/16 at 0547 by Zhanna Webb LVN WRONG PT ENTRY
--- NOTE | 2016-07-19 02:15 | NUR ---
NOTES; APPEARED TO BE SLEEPING, EYES CLOSED. RESPIRATION EVEN AND UNLABORED. NO ACUTE DISTRESS NOTED. SAFETY MEASURES IN PROGRESS.
[2016-07-19 03:58] VITALS: BP 119/68; PULSE 80; RESP 18; TEMP 97.8; O2SAT 97
[2016-07-19] MEDS: HYDROmorphone 2 MG/ML VIAL IVP PRN ×5 (03:58→21:35)
--- NOTE | 2016-07-19 04:30 | NUR ---
NOTES; APPEARED TO BE SLEEPING, EYES CLOSED. RESPIRATION EVEN AND UNLABORED. NO ACUTE DISTRESS NOTED. SAFETY MEASURES IN PROGRESS.
[2016-07-19] MEDS: VANCOMYCIN HCL 1,250 MG in NS 250 ML IV SCH ×3 (05:56→21:33)
--- NOTE | 2016-07-19 07:36 | NUR ---
NOTES; BLOOD SUGAR FOUND TO BE 250. ORDERED INSULIN SLIDING SCALE ADMINISTERED. NO S/S OF DISTRESS OR COMPLAINT OF PAIN AT THIS TIME, VSS, PICC DRESSING INTACT, SALINE LOCK. DRESSING TO LEFT LOWER EXTREMITY CLEAN DRY AND INTACT. ALL NEEDS ATTENDED TO THROUGH OUT SHIFT, SAFETY MEASURES MAINTAINED, BED IN LOW POSITION AND LOCKED, CALL LIGHT WITHIN REACH.
--- NOTE | 2016-07-19 08:00 | NUR ---
INITIAL NOTE PT LAYING IN BED, RESTING, EASY TO AROUSE, ALERT AND ORIENTED X4, NO S/S OF DISTRESS, VSS, COMPLAINT OF PAIN 11/09 WILL FOLLOW UP WITH PRN PAIN MEDICATION, PICC TO UPPER RIGHT ARM INTACT, FLUSHES WITH GOOD BLOOD RETURN NOTED, DRESSING TO LEFT FOOT CLEAN DRY AND INTACT. PT REORIENTED TO USE OF CALL LIGHT, PLACED WITHIN REACH AND ENCOURAGED TO CALL FOR ASSISTANCE WHEN GETTING OUT OF BED, SAFETY MEASURES IN PLACE, BED IN LOW POSITION AND LOCKED, WILL FOLLOW UP
[2016-07-19 08:09] VITALS: BP 128/74; PULSE 89; RESP 17; TEMP 97.4
[2016-07-19] MEDS: NEOMY SULF/BACITRAC ZN/POLY 14.2 GM OINT..GM. TP SCH (08:39)
[2016-07-19] MEDS: LACTOBACILLUS RHAMNOSUS GG 1 CAP CAPSULE PO SCH (08:39)
--- NOTE | 2016-07-19 09:00 | NUR ---
AM MEDICATION PASS, PAIN MANAGEMENT AND WOUND CARE. WOUND CLEANSED WITH NORMAL SALINE, PAT DRY, SURE PREP APPLIED TO PERIWOUND, ANTIBIOTIC OINTMENT APPLIED TO WOUND BED, COVERED WITH FOAM DRESSING AND SECURED WITH CLING WRAP. PT PAIN MEDICATED BEFORE DRESSING CHANGE, TOLERATED WELL.
--- NOTE | 2016-07-19 11:23 | NUR ---
ACCUCHECK 310, COVERED PER SLIDING SCALE. ]PT NEEDS ATTENDED TO, SAFETY MEASURES IN PLACE, WILL FOLLOW UP
--- NOTE | 2016-07-19 13:30 | NUR ---
ROUNDS PT LAYING IN BED, RESTING EASY TO AROUSE, SAFETY MEASURES IN PLACE, CALL LIGHT WITHIN REACH, WILL CONTINUE TO MONITOR.
[2016-07-19 13:56] VITALS: BP 133/72; PULSE 86; RESP 20; TEMP 99.4; O2SAT 93
--- NOTE | 2016-07-19 15:35 | NUR ---
ROUNDS PT SITTING UP IN BED, ASSISTED TO RESTROOM, RETURNED TO BED, NEEDS ATTENDED TO, SAFETY MEASURES IN PLACE, WILL CONTINUE TO MONITOR
[2016-07-19 16:44] VITALS: BP 130/75; PULSE 80; RESP 20; TEMP 99; O2SAT 93
--- NOTE | 2016-07-19 17:00 | NUR ---
ACCUCHECK 225, COVERED PER SLIDING SCALE.
--- NOTE | 2016-07-19 18:30 | NUR ---
CLOSING NOTE PT LAYING IN BED, AWAKE, NO COMPLAINT OF PAIN AT THIS TIME, PICC TO RIGHT UPPER ARM INTACT, NO S/S OF INFILTRATION NOTED, DRESSING TO LEFT FOOT CLEAN, DRY AND INTACT. ALL NEEDS ATTENDED TO THROUGHOUT SHIFT, SAFETY MEASURES IN PLACE, BED IN LOW POSITION AND LOCKED, CALL LIGHT WITHIN REACH, WILL GIVE REPORT TO FOLLOWING SHIFT.
[2016-07-19 19:35] VITALS: BP 147/89; PULSE 79; RESP 18; TEMP 97.4; O2SAT 96
--- NOTE | 2016-07-19 19:35 | NUR ---
INITIAL NOTE Patient resting on the bed comfortable. No acute distress. Respiration even and unlabored. AO x 4. Denied of pain at this time. Skin warm and dry to touch. PICC line intact to right upper arm and covered with transparent dressing, no redness, no swelling. Left foot wound covered with clean and dry dressing. Discussed the safety issue, use call light when need help, and plan of care, verbally understanding. Safety measure maintained. Call light within reached. Bed in low position, bed alarm on, side rails up. Will continue to monitor.
[2016-07-19] MEDS: TEMAZEPAM 15 MG CAPSULE PO SCH (21:00)
--- NOTE | 2016-07-19 21:35 | NUR ---
DILAUDID GIVEN Patient c/o left foot pain 11/09, Dilaudid 2mg IVP given as ordered. No acute distress. Safety measure maintained. Call light within reached. Bed in low position, side rails up, bed alarm on. Will continue to monitor.
--- NOTE | 2016-07-19 23:21 | NUR ---
ROUND Patient resting on the bed with eyes closed. No acute distress. Respiration even and unlabored. Safety measure maintained. Call light within reached. Bed alarm on, bed in low position, side rails up. Continue to monitor.
[2016-07-20 00:25] VITALS: BP 137/80; PULSE 82; RESP 16; TEMP 98.4; O2SAT 93
[2016-07-20] MEDS: HYDROmorphone 2 MG/ML VIAL IVP PRN ×5 (04:18→22:44)
[2016-07-20 04:35] VITALS: BP 120/80; PULSE 83; RESP 18; TEMP 98.2; O2SAT 97
--- NOTE | 2016-07-20 05:25 | NUR ---
ROUND Patient resting on the bed with eyes closed. No acute distress. Safety measure maintained. Call light within reached. Bed alarm on, bed in low position, side rails up. Continue to monitor.
[2016-07-20] MEDS: PIPERACILLIN/TAZO 3.375/DEX-IS 50 ML IV SCH ×3 (05:27→17:27)
[2016-07-20] MEDS: VANCOMYCIN HCL 1,250 MG in NS 250 ML IV SCH ×3 (06:06→21:51)
[2016-07-20] MEDS: INSULIN REGULAR, HUMAN 100 UNITS/ML, 10 ML VIAL (novoLIN R) SUBCUT PRN ×3 (06:12→17:24)
--- NOTE | 2016-07-20 06:50 | NUR ---
CLOSING NOTE Patient resting on the bed comfortable. No acute distress. Respiration even and unlabored. Skin warm and dry to touch. PICC line intact to right upper arm and covered with transparent dressing, no redness, no swelling. Left foot wound covered with clean and dry dressing. All need met. Hourly rounding during shift. Safety measure maintained. Call light within reached. Bed in low position, bed alarm on, side rails up. Will endorse to morning shift nurse..
--- NOTE | 2016-07-20 07:30 | NUR ---
am rounds: patient sleeping during rounds. ivf on going at right upper arm intact. left foot dressing dry and intact. stable.
[2016-07-20 08:11] VITALS: BP 145/73; PULSE 90; RESP 18; TEMP 98.8; O2SAT 97
--- NOTE | 2016-07-20 08:12 | NUR ---
rounds: patient sitting up on bed,having breakfast.vital signs taken,afebrile and stable. with left foot dressing dry and intact. no distress. continue to monitor.
--- NOTE | 2016-07-20 08:40 | NUR ---
pain meds: c/o left foot pain s/p debridement 3 days ago,due iv pain meds given per request.
--- NOTE | 2016-07-20 10:39 | NUR ---
rounds: sleeping during rounds.
[2016-07-20] MEDS: NEOMY SULF/BACITRAC ZN/POLY 14.2 GM OINT..GM. TP SCH (11:37)
--- NOTE | 2016-07-20 11:50 | NUR ---
Wound Re-Evaluation: Patient is awake, alert, and oriented. Skin is Good (-). Rogerio score is a 20. Patient received in a [place] bed with an Atmos-Air 9000 mattress. Intrinsic factors that delay wound healing: Diabetes Mellitus. Extrinsic factors: decreased mobility. Blood culture x 2 negative. Patient presents with: 1. Left Foot Appears to be a Diabetic Ulcer, present on admission. Wound bed is 95% pink tissue, 5% white tissue. Mary Jo-wound pink. No odor, no drainage. Surrounding tissue is calloused. Dry, stable. Recommend continue as per Dr. Gray's orders: Cleanse wound with normal saline. Pat dry. Put SurePrep onto mary jo-wound. Put triple antibiotic ointment onto wound bed. Cover with foam dressing. Wrap with matt wrap and secure with tape. Perform wound care daily, and as needed for dressing soiling or dislodgment. 2. 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 No odor, no drainage. Recommend continue: No dressing needed. Continue to monitor site for opening or worsening condition. Elevate offload, and float area at all times. Also recommend continue: Encourage and assist patient as needed with repositioning every 2 hours with pillow support, and off-load heels and pressure areas with pillows for pressure redistribution. Maintain non-weight bearing on left foot at wound site. Addendum: 07/20/16 at 1319 by Raciel Lowry RN Wound 1): Measures 2.5 cm x 1.7 cm x 0.3 cm. Dark red tissue, not pink.Status post surgical debridement by Dr. Gray on 07/16/16. No pain reported. Offered Dr. Degroot an opportunity to view the wound prior to initiation of wound care.
--- NOTE | 2016-07-20 11:54 | NUR ---
BLOOD SUGAR: BLOOD SUGAR TAKEN,WITH INSULIN COVERAGE GIVEN PER SLIDING SCALE.
--- NOTE | 2016-07-20 11:55 | NUR ---
wound care: cleanse ns left foot debridement,photos taken by w[facility],bacitracin ointment applied to wound bed,sureprep applied to ellen wound area,covered with optifoam and kerlix over it.
[2016-07-20 12:18] VITALS: BP 117/69; PULSE 104; RESP 16; TEMP 97.2; O2SAT 94
--- NOTE | 2016-07-20 12:36 | NUR ---
PAIN MEDS: C/O LEFT FOOT PAIN,DUE IV PAIN MEDS GIVEN PER REQUEST.
[2016-07-20 12:40] LABS: BASOPHILS # (AUTO) 0.1 K/uL (0.0-0.2); BASOPHILS % (AUTO) 0.5 % (0.0-2.0); EOSINOPHILS # (AUTO) 0.3 K/uL (0.0-0.4); EOSINOPHILS % (AUTO) 2.6 % (0.0-4.0); HEMATOCRIT 42.8 % (36-54); HEMOGLOBIN 14.8 g/dL (14.0-18.0); LYMPHOCYTES # (AUTO) 1.5 K/uL (1.0-5.5); LYMPHOCYTES % (AUTO) 14.1 % (20.5-51.5); MEAN CORPUSCULAR HEMOGLOBIN 30 pg (27-31); MEAN CORPUSCULAR HGB CONC 35 % (32-36); MEAN CORPUSCULAR VOLUME 85 fL (79.0-98.0); MONOCYTES # (AUTO) 0.7 K/uL (0.0-1.0); MONOCYTES % (AUTO) 6.2 % (1.7-9.3); NEUTROPHILS % (AUTO) 76.6 % (40.0-70.0); PLATELET COUNT (AUTO) 225 K/uL (130-430); RED BLOOD CELL COUNT(AUTO) 5.03 MIL/uL (4.2-6.2); RED CELL DISTRIBUTION WIDTH 11.8 % (9.0-15.0); WHITE BLOOD COUNT (AUTO) 10.6 K/uL (4.8-10.8)
[2016-07-20 12:48] LABS: ALBUMIN 3.3 g/dL (3.4-4.8); CREATININE 0.81 mg/dL (0.55-1.30); TOTAL BILIRUBIN 0.5 mg/dL (0.0-1.0); TOTAL PROTEIN, SERUM 7.2 g/dL (6.4-8.3)
--- NOTE | 2016-07-20 14:05 | NUR ---
rounds: sleeping during rounds. no distress.
--- NOTE | 2016-07-20 16:20 | NUR ---
rounds: sleeping during rounds. stable.
[2016-07-20 16:42] VITALS: BP 137/81; PULSE 83; RESP 17; TEMP 97.5; O2SAT 94
--- NOTE | 2016-07-20 17:30 | NUR ---
accucheck notes: blood sugar taken,with insulin coverage given per sliding scale.
--- NOTE | 2016-07-20 18:10 | NUR ---
paged: spoke with dr marley regarding id not ok dc home today due to pt needs iv vanco .with orders hold dc today, to arrange case mgt to home health for continue iv antibiotics.
--- NOTE | 2016-07-20 18:13 | NUR ---
PAIN MEDS; C/O LEFT FOOT PAIN S/P DEBRIDEMENT,DUE IV PAIN MEDS GIVEN PER REQUEST.
--- NOTE | 2016-07-20 18:43 | NUR ---
CLOSING NOTES: STABLE. NO DISTRESS.
--- NOTE | 2016-07-20 19:25 | NUR ---
initial nursing notes: Patient is awake. Patient has PICC line double port on the RUE. Patient denies of having pain at this time.
[2016-07-20 19:49] VITALS: BP 139/77; PULSE 79; RESP 15; TEMP 98.3; O2SAT 94
[2016-07-20] MEDS: TEMAZEPAM 15 MG CAPSULE PO SCH (21:00)
--- NOTE | 2016-07-20 21:25 | NUR ---
nursing rounds: Patient is ambulatory to the bathroom using crutches. No falls and no injuries noted.
--- NOTE | 2016-07-20 23:25 | NUR ---
nursing rounds: Patient stated that the pain medication was effective. Patient denies of having pain at this time.
[2016-07-21] MEDS: INSULIN REGULAR, HUMAN 100 UNITS/ML, 10 ML VIAL (novoLIN R) SUBCUT PRN ×5 (00:05→23:34)
[2016-07-21] MEDS: PIPERACILLIN/TAZO 3.375/DEX-IS 50 ML IV SCH ×5 (00:11→23:27)
[2016-07-21 00:27] VITALS: BP 139/88; PULSE 76; RESP 16; TEMP 97.5; O2SAT 95
--- NOTE | 2016-07-21 01:25 | NUR ---
nursing rounds: Patient calmly resting in bed. Patient has no shortness of breath.
[2016-07-21] MEDS: HYDROmorphone 2 MG/ML VIAL IVP PRN ×5 (03:04→23:28)
--- NOTE | 2016-07-21 03:25 | NUR ---
nursing rounds: Patient received another pain medication for his foot pain. Patient is currently asleep.
[2016-07-21 04:00] VITALS: BP 125/77; PULSE 79; RESP 15; TEMP 97.2; O2SAT 94
--- NOTE | 2016-07-21 05:25 | NUR ---
nursing rounds: Patient calmly resting in bed. Call light within patient's reach.
[2016-07-21] MEDS: VANCOMYCIN HCL 1,250 MG in NS 250 ML IV SCH ×3 (05:48→21:18)
--- NOTE | 2016-07-21 07:20 | NUR ---
am rounds: report given at bedside. patient just came from the rest room,using crutches. stable. left foot dressing dry and intact. continue to monitor.
[2016-07-21 07:55] VITALS: BP 139/84; PULSE 84; RESP 16; TEMP 98.3; O2SAT 96
--- NOTE | 2016-07-21 07:58 | NUR ---
closing nursing notes: Patient is awake, alert and oriented X 4. Patient is in no acute respiratory distress. Patient is ambulatory using crutches. No episodes of fall and no injuries throughout the production shift supervisor. Provided nursing report to incoming morning shift nurse, GUANAKITO Reddy, at patient's bedside.
--- NOTE | 2016-07-21 08:38 | NUR ---
Nutrition Update Rogerio Scale 18 noted. Pt admitted for diabetic foot ulcer. Diet: [facility] BMI: 26.7 kg/m2 RD to follow per nutrition care standards.
[2016-07-21] MEDS: NEOMY SULF/BACITRAC ZN/POLY 14.2 GM OINT..GM. TP SCH (08:45)
--- NOTE | 2016-07-21 08:49 | NUR ---
pain meds: c/o left foot debridement pain and due iv pain meds given per request.
--- NOTE | 2016-07-21 11:38 | NUR ---
BLOOD SUGAR: BLOOD SUGAR TAKEN,WITH INSULIN COVERAGE GIVEN PER SLIDING SCALE.
[2016-07-21 12:00] VITALS: BP 146/86; PULSE 83; RESP 18; TEMP 98.7; O2SAT 96
--- NOTE | 2016-07-21 13:14 | NUR ---
ROUNDS: RESTING. PT ATE LUNCH ALREADY. NO DISTRESS.
--- NOTE | 2016-07-21 14:31 | NUR ---
ROUNDS: RESTING. IV PAIN MEDS JUST GIVEN BY BEA CALABRESE.
--- NOTE | 2016-07-21 15:58 | NUR ---
Nutrition F/U Admitting Diagnosis Diabetic food ulcer Reviewed Pertinent Medical/Surgical Hx Patient Medical Record Medical History Comment: DM per MD notes Subjective Information Pt noted w/ +Staph aureus to L foot per EMR. Pt seen resting in bed at time of RD visit. Pt reports good appetite and reports that he has been tolerating diet well w/ no s/s N/V/C/D. Pt reports last BM was two days ago. Pt reports that he is hungry in-between meals; RD offered HS snacks daily (celery sticks w/ peanut butter); pt agreeable. Pt also requested iced tea w/ all lunch and dinner meals; RD noted preferences via [employer]. Per EMR, PO Intakes: 84% average PO intakes x15 meals. Abd is non-distended. Last BM x1 07/18/16. I/O: 300/0 (+300 ml) per 12 hours. Pt is likely meeting optimal nutritional needs. Pt received nutrition education at initial nutrition assessment visit. Current Diet Order/Nutrition Support CCHO (x5 day) Patient/Significant Other Able To Verbalize Education Provided Indicated Pertinent Medications Reviewed Pertinent Labs Reviewed Height (Feet) 6 feet Height (Inches) 2.00 inches Weight (Pounds) 208 pounds (admission) Weight (Calculated Kilograms) 94.303624 kilograms Patient Weight 94.347 kg Body Mass Index 26.70 kg/m2 Usual Weight 200 lbs %UBW 104 %IBW 109 [place]/Adjusted Body Weight IBW: 190 lb (86 kg) Recent Weight Change Yes - 5-8 lb weight gain in the past month. Weight Status Overweight Gastrointestinal Symptoms None Last BM Jul 14, 2016 Food Allergies No Usual Diet At Home Regular, no restrictions, typically skips breakfast, tries to eat low sugar Skin Integrity Comment: Wound Consult 07/20/16: Skin is Good (-). Rogerio score is a 20. 1. Left Foot: Appears to be a Diabetic Ulcer, present on admission. 2. 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 Current % PO Good (75-100%) Estimated Energy Expenditure (kcals/day) 3700-1581 kcal/day (BEE x 1.2-1.3 for wound healing) Estimated Protein Required (g/day) 113-141 gm/day (1.2-1.5 gm/kg CBW for wound healing) Estimated Fluid Required (l/day) 2.4-2.8 L/day (25-30 ml/kg CBW for maintenance) Problem/Etiology/Signs/Symptoms Increased nutritional needs related to wound healing as evidenced by increased estimated calorie and protein needs for L food diabetic ulcer. *ongoing Expected Outcomes/Goals 1. Meet at least 75% of estimated needs with acceptable tolerance 2. Labs trending within normal limits 3. Improved skin integrity, wound healing 4. Maintain normal GI function 5. Weight maintenance Dietitian Recommendations * Recommend continuing CCHO diet per MD * Recommend HS snacks daily * Recommend adherence to pt food preferences Follow Up Mod Risk: F/U in 3-5 days
[2016-07-21 16:00] VITALS: BP 137/76; PULSE 80; RESP 18; TEMP 98.6; O2SAT 97
--- NOTE | 2016-07-21 16:10 | NUR ---
rounds: resting. stable.
--- NOTE | 2016-07-21 17:35 | NUR ---
ACCUCHECK NOTES: BLOOD SUGAR TAKEN,WITH INSULIN COVERAGE GIVEN PER SLIDING SCALE.
--- NOTE | 2016-07-21 18:25 | NUR ---
CLOSING NOTES: EATING DINNER. NO COMPLAINED MADE. STABLE.
--- NOTE | 2016-07-21 19:50 | NUR ---
Initial Note Late entry due to patient care. Patient in bed at this time resting, respirations even and unlabored. Patient denies any pain or discomfort at this time at this time no facial grimacing noted. Call light in hand. Fall and safety precautions in place. will continue to monitor.
[2016-07-21 20:00] VITALS: BP 135/82; PULSE 82; RESP 20; TEMP 97.9; O2SAT 96
[2016-07-21] MEDS: TEMAZEPAM 15 MG CAPSULE PO SCH (21:00)
--- NOTE | 2016-07-21 21:10 | NUR ---
WOUND CARE Cleanse wound with normal saline. Pat dry. Put SurePrep onto ellen-wound. Put triple antibiotic ointment onto wound bed. Cover with foam dressing. Wrap with matt wrap and secure with tape. Patient tolerated well.
--- NOTE | 2016-07-21 22:43 | NUR ---
RN ROUNDS Patient in bed at this time resting, respirations even and unlabored. No acute distress noted at this time. Patient in no apparent pain or discomfort. No facial grimacing noted. Call light in hand. Fall and safety precautions in place. Will continue to monitor.
[2016-07-22 00:04] VITALS: BP 135/76; PULSE 76; RESP 17; TEMP 97.4; O2SAT 96
--- NOTE | 2016-07-22 00:14 | NUR ---
RN ROUNDS Patient in bed at this time resting, respirations even and unlabored. No acute distress noted at this time. Patient in no apparent pain or discomfort at this time. No acute grimacing noted. Call light in hand. Fall and safety precautions in place. Will continue to monitor.
[2016-07-22 04:00] VITALS: BP 135/82; PULSE 78; RESP 17; TEMP 96.4; O2SAT 96
[2016-07-22] MEDS: PIPERACILLIN/TAZO 3.375/DEX-IS 50 ML IV SCH ×4 (05:14→23:26)
[2016-07-22] MEDS: INSULIN REGULAR, HUMAN 100 UNITS/ML, 10 ML VIAL (novoLIN R) SUBCUT PRN ×4 (05:16→23:28)
[2016-07-22] MEDS: HYDROmorphone 2 MG/ML VIAL IVP PRN ×5 (05:23→22:15)
[2016-07-22] MEDS: VANCOMYCIN HCL 1,250 MG in NS 250 ML IV SCH ×3 (05:57→22:27)
--- NOTE | 2016-07-22 06:54 | NUR ---
Closing Note Patient in bed at this time resting, respirations even and unlabored. No acute distress noted at this time. Patient denies any pain or discomfort at this time. All due meds given, all needs met. Call light in hand. Fall and safety precautions in place. Will endorse to day shift nurse.
[2016-07-22 08:00] VITALS: BP 125/79; PULSE 82; RESP 18; TEMP 97.9; O2SAT 97
--- NOTE | 2016-07-22 08:00 | NUR ---
initial notes rec patient asleep but arousable to stimuli. picc line on the r upper arm intact. no infiltration noted. dressing on the left foot area intact. pain level is 5 at this time. resp easy and unlabored. no acute distress noted. bed in low position side rails up and locked. call light with reached and knows when to call for assistance. will continue to monitor patient.
[2016-07-22] MEDS: NEOMY SULF/BACITRAC ZN/POLY 14.2 GM OINT..GM. TP SCH (09:02)
--- NOTE | 2016-07-22 10:00 | NUR ---
rounds asleep when rounds made. seen by dr vale. no acute distress.
[2016-07-22 12:00] VITALS: BP 152/87; PULSE 94; RESP 21; TEMP 97.1; O2SAT 97
--- NOTE | 2016-07-22 13:00 | NUR ---
rounds med as ordered for pain as requested. no hypo hyperglycemic reaction noted.no acute distress. call light within reached.
--- NOTE | 2016-07-22 14:59 | NUR ---
rounds sleeping at this time. no acute distress.
--- NOTE | 2016-07-22 16:00 | NUR ---
Wound Re-Evaluation: Patient is awake, alert, and oriented. Skin is Good (-). Rogeroi score is a 19. Patient received in a [place] bed with an Atmos-Air 9000 mattress. Intrinsic factors that delay wound healing: Diabetes Mellitus. Extrinsic factors: decreased mobility. Blood culture x 2 negative. Status post surgical debridement by Dr. Gray on 07/16/16. No pain reported. Patient presents with: 1. Left Foot Appears to be a Diabetic Ulcer, present on admission. Wound bed is 85% light pink tissue, 10% red tissue, 5% blackened skin. Ellen-wound pink. No odor, no drainage. Surrounding tissue is calloused. Measures 2.0 cm x 1.1 cm x 0.1 cm. Recommend continue as per Dr. Gray's orders: Cleanse wound with normal saline. Pat dry. Put SurePrep onto ellen-wound. Put triple antibiotic ointment onto wound bed. Cover with foam dressing. Wrap with matt wrap and secure with tape. Perform wound care daily, and as needed for dressing soiling or dislodgment. 2. 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 No odor, no drainage. Recommend continue: No dressing needed. Continue to monitor site for opening or worsening condition. Elevate offload, and float area at all times. Also recommend continue: Encourage and assist patient as needed with repositioning every 2 hours with pillow support, and off-load heels and pressure areas with pillows for pressure redistribution. Maintain non-weight bearing on left foot at wound site.
[2016-07-22 16:35] VITALS: BP 142/86; PULSE 81; RESP 18; TEMP 97.2; O2SAT 98
--- NOTE | 2016-07-22 17:30 | NUR ---
rounds ambulated to the br and ankita well.no hypo hyperglycemic reaction noted. pain med was given for pain l foot.
--- NOTE | 2016-07-22 18:30 | NUR ---
closing notes resting quietly . no c.opain. stable needs attended. no acute distress.
--- NOTE | 2016-07-22 20:13 | NUR ---
OPENING NOTE Pt. and bedside report received from day shift nurse. Pt. is resting quietly in bed with no s/s of acute distress. Safety measures in place. Pt. requested to have bed alarm off at this time. Requested ice water. Educated pt. on how to use call light for needs. Will continue to monitor.
[2016-07-22 20:16] VITALS: BP 130/84; PULSE 80; RESP 18; TEMP 98.3; O2SAT 96
[2016-07-22] MEDS: TEMAZEPAM 15 MG CAPSULE PO SCH (20:45)
--- NOTE | 2016-07-22 22:46 | NUR ---
pain: Patient medicated 7/10 pain to left foot. Dilaudid ivp given as ordered for severe pain. See emar. Educated patient to medication and side effects. Instructed pt. to use call light for any needs. Call light placed by rt. hand. Safety measures in place. Pt. refused bed alarm but educated on fall risk. Patient verbalized understanding of instruction. Will continue to monitor.
[2016-07-23 00:04] VITALS: BP 134/76; PULSE 73; RESP 17; TEMP 98.4; O2SAT 93
[2016-07-23] MEDS: HYDROmorphone 2 MG/ML VIAL IVP PRN ×5 (02:17→21:32)
--- NOTE | 2016-07-23 02:21 | NUR ---
PAIN Pt. c/o pain "12/10" to left foot. Pt. medicated with Dilaudid IVP as ordered PRN for severe pain. Educated pt. regarding medication and s/e. Encouraged pt. to use call light for needs. Will cont. to monitor.
--- NOTE | 2016-07-23 02:53 | NUR ---
ROUNDS Pt. resting quietly in bed with eyes closed. Respirations are even and unlabored with visible chest rise and fall. No s/s of acute distress. Safety measures in place. Bed alarm remains off as requested by pt. but is able to use call light for needs. Will continue to monitor.
[2016-07-23 04:00] VITALS: BP_SYST 119; BP_SYST 123; BP_DIAS 70; BP_DIAS 86; PULSE 73; PULSE 74; RESP 16; RESP 18; TEMP 97.3; TEMP 98.7; O2SAT 93; O2SAT 95
--- NOTE | 2016-07-23 04:59 | NUR ---
ROUNDS Pt. is resting quietly in bed with no s/s of acute distress. Pt. denies any other needs at this time. Safety measures in place. Encouraged pt. to use call light for needs. Will continue to monitor.
[2016-07-23] MEDS: PIPERACILLIN/TAZO 3.375/DEX-IS 50 ML IV SCH ×2 (05:49→12:03)
[2016-07-23] MEDS: INSULIN REGULAR, HUMAN 100 UNITS/ML, 10 ML VIAL (novoLIN R) SUBCUT PRN ×3 (05:56→17:15)
--- NOTE | 2016-07-23 06:46 | NUR ---
VANCOMYCIN Pharmacy was notified that vanco abx was not available to infuse; pharmacy said they will bring it to the unit. Will follow up.
--- NOTE | 2016-07-23 07:20 | NUR ---
initial notes: patient ambulatory. awake, alert and oriented. i.v. access patent. L foot with dressing. discussed plan of care. call light within reach. report received at bedside.
[2016-07-23] MEDS: VANCOMYCIN HCL 1,250 MG in NS 250 ML IV SCH (07:51)
--- NOTE | 2016-07-23 08:02 | NUR ---
PAIN/VANCOMYCIN/CLOSING NOTES Pt. c/o "11/09" pain; medicated with Dilaudid IVP as ordered PRN for severe pain. Vancomycin infusing as ordered. Pt. denies any needs at this time. Safety measures in place. Call light placed to right hand. Educated pt. on how to use telephone to page nurses directly for needs if call light ineffective. Pt. able to return demonstration. Bed alarm remains off as requested by pt. but is educated on risks for falls. No significant changes. All needs met throughout shift. Bedside report and care endorsed to day shift nurse.
[2016-07-23] MEDS: NEOMY SULF/BACITRAC ZN/POLY 14.2 GM OINT..GM. TP SCH (10:50)
--- NOTE | 2016-07-23 10:59 | NUR ---
dressing changed: cleaned and changed dressing the l foot. no drainage.
[2016-07-23 12:00] VITALS: BP 143/84; PULSE 74; RESP 16; TEMP 98.3; O2SAT 95
--- NOTE | 2016-07-23 12:16 | NUR ---
Blood sugar: 326mg/dl. 8 units given regular insulin.
--- NOTE | 2016-07-23 14:45 | NUR ---
DISCHARGE PLANNING Faxed DME order to [facility] Aaron Garcia requesting raygoza quote for IV medication. Will follow up. Addendum: 07/23/16 at 1656 by Reema JOHNSON [facility] spoke with Stephanie $90.00 per day IV Medication & Supplies $200.00 per visit RN [facility] spoke with Cami $50.00 per day IV Medication & Supplies $90.00 x2 Hrs RN $45.00 each additional Hr thereafter [facility] spoke with Liat who stated IV medication and supplies are covered at 100% and will assisted DCP in finding home health so see patient for teaching. Faxed EMR to [facility] and requested. DCP will follow up in AM.
--- NOTE | 2016-07-23 15:00 | NUR ---
rounds: pt on bed resting. no distress noted.
[2016-07-23 16:00] VITALS: BP 136/82; PULSE 77; RESP 21; TEMP 98; O2SAT 98
--- NOTE | 2016-07-23 18:55 | NUR ---
closing notes: pt on bed. stable. needs attended. call light within reach. report will be given at bedside.
--- NOTE | 2016-07-23 19:42 | NUR ---
OPENING NOTE: REPORT RECEIVED FROM DAY-SHIFT NURSE. PATIENT IN BED. DENIES DISCOMFORT AT THIS TIME. LEFT FOOT DRSG. D/I. ENCOURAGED USE OF CALL LIGHT FOR ANY NEEDS. SAFETY PRECAUTIONS IN PROGRESS.
[2016-07-23 20:00] VITALS: BP 145/89; PULSE 72; RESP 12; TEMP 97.9; O2SAT 97
[2016-07-23] MEDS: TEMAZEPAM 15 MG CAPSULE PO SCH (21:00)
--- NOTE | 2016-07-23 23:13 | NUR ---
PAGED PAGED SEBASTIEN SOOD AT [phone] SPOKE WITH RIKA.
--- NOTE | 2016-07-23 23:32 | NUR ---
MEDICATION CLARIFICATION: SPOKE WITH DR. SLAUGHTER WITH REGARDS TO VANCOMYCIN AND ZOSYN ORDERS. DR. Lobito SLAUGHTER ORDERED TO "CONTINUE WITH SAME ORDERS BEFORE".
[2016-07-23] MEDS ORDERED: PIPERACILLIN/TAZOBACTAM 3.375 GM/VIAL (ZOSYN) IV ONE (23:47)
[2016-07-23] MEDS ORDERED: VANCOMYCIN HCL 500 MG/VIAL IV ONE (23:48)
[2016-07-23] MEDS ORDERED: VANCOMYCIN HCL 1000 MG/VIAL IV ONE (23:48)
[2016-07-24] VITALS: BP 125/65; PULSE 72; RESP 20; TEMP 98.2; O2SAT 96
[2016-07-24] MEDS: PIPERACILLIN/TAZO 3.375/DEX-IS 50 ML IV SCH ×4 (00:28→17:09)
[2016-07-24] MEDS: INSULIN REGULAR, HUMAN 100 UNITS/ML, 10 ML VIAL (novoLIN R) SUBCUT PRN ×4 (00:33→17:13)
[2016-07-24] MEDS: HYDROmorphone 2 MG/ML VIAL IVP PRN ×4 (02:08→16:51)
--- NOTE | 2016-07-24 02:45 | NUR ---
LATE ENTRY: PATIENT MEDICATED FOR LEFT FOOT PAIN 11/09 WITH DILAUDID 2MG IVP. PICC LINE FLUSHES EASILY. PATIENT INSTRUCTED TO CALL FOR ASSIST WITH ANY NEEDS. PATIENT VERBALIZES UNDERSTANDING OF INSTRUCTION.
--- NOTE | 2016-07-24 03:15 | NUR ---
ROUNDS: PAIN MED REASSESSMENT. PATIENT IS RESTING QUIETLY WITHOUT S/S OF DISTRESS. RESPIRATIONS ARE UNLABORED AND REGULAR. BED IN LOW POSITION WITH CALL LIGHT IN REACH.
[2016-07-24] MEDS: VANCOMYCIN HCL 1,250 MG in NS 250 ML IV SCH ×2 (07:01→14:24)
--- NOTE | 2016-07-24 07:20 | NUR ---
Initial notes: pt on be resting. stable. i.v. access patent. discussed plan of care. call light within reach. report given at beside.
[2016-07-24 08:00] VITALS: BP 139/80; PULSE 68; RESP 14; TEMP 97.7; O2SAT 95
[2016-07-24] MEDS: NEOMY SULF/BACITRAC ZN/POLY 14.2 GM OINT..GM. TP SCH (09:42)
--- NOTE | 2016-07-24 10:11 | NUR ---
DISCHARGE PLANNING Called and spoke with Janet at [facility], faxed referral [phone]. Janet will review and check if nursing staff available to make courtesy visit.
--- NOTE | 2016-07-24 10:20 | NUR ---
Dressing: changed dressing on the L foot. wound. no drainage. cleaned,applied topical antibiotic , changed foam and wrap with matt.
--- NOTE | 2016-07-24 10:24 | NUR ---
PICC line dressing: changed PICC line dressing with sterile technique. covered with transparent dressing.
--- NOTE | 2016-07-24 11:53 | NUR ---
Per dcp Reema, [facility] will make a courtesy visit for IV abx administration/teaching to pt. I left message for Dr. Degroot, as pt will need rx to have Vanco P&T drawn and PICC line dressing change at [facility]. IV Vancomycin to be delivered to pt's home this evening per Reema. Need dc order and rx--Nurse Nya made aware of my message to Dr. Snyder. RN
--- NOTE | 2016-07-24 13:17 | NUR ---
Wound Re-Evaluation: Patient is awake, alert, and oriented. Skin is Good (-). Rogerio score is a 19. Patient received in a [place] bed with an Atmos-Air 9000 mattress. Intrinsic factors that delay wound healing: Diabetes Mellitus. Extrinsic factors: decreased mobility. Blood culture x 2 negative. Status post surgical debridement by Dr. Gray on 07/16/16. Wound care performed by day shift nurse this morning. Dressing not removed for assessment, because doing so would decrease wound temperature and retard wound healing rate. Assessment provided by GUANAKITO Fay. Patient presents with: 1. Left Foot Appears to be a Diabetic Ulcer, present on admission. Wound bed is 85% light pink tissue, 10% red tissue, 5% blackened skin. Mary Jo-wound pink. No odor, no drainage. Surrounding tissue is calloused. Recommend continue as per Dr. Gray's orders: Cleanse wound with normal saline. Pat dry. Put SurePrep onto mary jo-wound. Put triple antibiotic ointment onto wound bed. Cover with foam dressing. Wrap with matt wrap and secure with tape. Perform wound care daily, and as needed for dressing soiling or dislodgment. 2. 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 No odor, no drainage. Recommend continue: No dressing needed. Continue to monitor site for opening or worsening condition. Elevate offload, and float area at all times. Also recommend continue: Encourage and assist patient as needed with repositioning every 2 hours with pillow support, and off-load heels and pressure areas with pillows for pressure redistribution. Maintain non-weight bearing on left foot at wound site.
[2016-07-24 13:19] VITALS: BP 138/87; PULSE 73; RESP 17; TEMP 96.5; O2SAT 97
[2016-07-24 15:27] VITALS: BP 124/69; PULSE 80; RESP 16; TEMP 97.6; O2SAT 98
--- NOTE | 2016-07-24 15:28 | NUR ---
rounds: pt on bed sleeping. no distress noted.
--- NOTE | 2016-07-24 15:55 | NUR ---
rounds: pt on bed resting. no distress noted.
--- NOTE | 2016-07-24 18:00 | NUR ---
Consult rounds: Dr. Yap seen the pt with written prescription.
[2016-07-24 19:02] VITALS: BP 148/81; PULSE 78; RESP 14; TEMP 97.2; O2SAT 98
--- NOTE | 2016-07-24 19:40 | NUR ---
Wound care: Education for changing dressing on L foot wound. Patient verbalized understanding.
--- NOTE | 2016-07-24 19:50 | NUR ---
I. V. flushing: Education provided for flushing PICC line. Patient able to return demo on flushing PICC line with NS. Education given for infection control and patient verbalized understanding.
--- NOTE | 2016-07-24 20:05 | NUR ---
D/C Patient Patient given medication reconciliation form and D/C instructions. Exit Care provided. Patient verbalized understanding. MD discussed with patient the results and treatment provided. Ambulatory with steady gait for discharge to home. Patient in stable condition, ID band removed. IV catheter removed, intact and dressing applied, no active bleeding. Rx given. Patient educated on pain management. All belongings sent with patient.
--- NOTE | 2016-07-31 13:57 | NUR ---
Discharge Follow Up Phone Call: ESTIMATOR AND DRAFTER SUPERVISOR placed call to pt ([phone]) and left a message; pt returned call today. Pt states that he had one visit from the [employer] for teaching of his IV antibiotics. Pt states that he has been administering his IV antibiotics. Pt states that he has not made an appointment with his PCP or [facility]. ESTIMATOR AND DRAFTER SUPERVISOR provided pt with contact information for the [facility]. Pt states that he has also not had lab work completed; pt states that he went to one lab company and they would not draw it because the paperwork was from the hospital. Pt states that he will be coming to the hospital today to have his lab work drawn. Pt states that his PICC line dressing has not been changed. ESTIMATOR AND DRAFTER SUPERVISOR encouraged pt to make an appointment with the [facility] for dressing changes. Pt states that when he comes to the hospital for his lab work he will stop by the ED to have his dressing changed. Auditing Specialist will follow up with pt next week to see if he made an appointment with the [facility].
--- NOTE | 2016-08-03 16:10 | NUR ---
Weekly Discharge Follow Up Phone Call: VIRTUALIZATION ARCHITECT called and spoke with pt ([phone]). Pt states that he is doing well overall; pt has an appointment scheduled for 08-08-15 at the [facility] to have his dressings changed and lab work. Pt did not express any other needs or concerns and denied the need for additional follow up at this time. No further follow up phone calls required at this time.
== END 2016-07-24 20:05 | disposition home health service (06) | DRG 317 ==
LOC: SED 09:28 → SMU 10:15
PROVIDERS: ADMIT Internal Medicine Hospice and Palliative Medicine; ATTEND Internal Medicine Hospice and Palliative Medicine
PROC: 0KBW0ZZ Excision of Left Foot Muscle, Open Approach (ICD-10-PCS; principal; 2016-07-16 07:30)
PROC: 02HV33Z Insertion of Infusion Device into Superior Vena Cava, Percutaneous Approach (ICD-10-PCS; 2016-07-17)
PROC: B548ZZA Ultrasonography of Superior Vena Cava, Guidance (ICD-10-PCS; 2016-07-17)
DX: E11.69 Type 2 diabetes mellitus with other specified complication (principal); M86.9 Osteomyelitis, unspecified; E11.42 Type 2 diabetes mellitus with diabetic polyneuropathy; E11.621 Type 2 diabetes mellitus with foot ulcer; E11.65 Type 2 diabetes mellitus with hyperglycemia; L97.529 Non-pressure chronic ulcer of other part of left foot with unspecified severity; I10 Essential (primary) hypertension; B95.61 Methicillin susceptible Staphylococcus aureus infection as the cause of diseases classified elsewhere; Z87.891 Personal history of nicotine dependence; Z89.422 Acquired absence of other left toe(s)
CPT/HCPCS: 36415; 71010; 73721; 80053; 80202-TC; 81000-TC; 82565-TC; 82962; 83605; 85025; 85610-TC; 85730-TC; 87040-TC; 87070; 87070-TC; 87075-TC; 87081; 87186-TC; 93005; 96365; 96366; 96375; 99285; C1751; C1769; J1170; J1815; J1885; J2250; J2270; J2543; J2704; J2765; J3010; J3370; J7030; J7040; J7050

== ENCOUNTER 2016-07-31 17:50 | Emergency (ER) | payer MEDICAID ==
[~2016-07-31] VITALS: Ht 188 cm; Wt 94.3 kg
[~2016-07-31 17:50] MED LIST changes: -AMOX500C2 PO; -LISI-694 PO
[2016-07-31 17:59] VITALS: BP_SYST 160
--- NOTE | 2016-07-31 18:05 | NUR ---
Pt placed to ER bed 04 and to gown. Pt report received from GUANAKITO Harris. Pt here r/t antibiotic tx for diabetic wound to Left Foot. Pt has Rx for Vanco Trough and needs PICC Line dsg change. Dsg to Right PICC line intact, no drainage or s/s infection noted. PICC lines flush with minor resistance, no blood return noted to either lines. Ulcer to Left foot to plantar aspect beneath toes 4 and 5. Dsg clean, dry, intact. Pt denies c/o pain or discomfort.
--- NOTE | 2016-07-31 18:10 | NUR ---
Dr. Gao at bedside to assess pt.
--- NOTE | 2016-07-31 18:15 | NUR ---
# 18 gauge angiocath placed to Left Wrist. Use of asceptic technique. Opsite placed over site. Blood return noted. Blood for lab drawn from site. Flushed with 10 cc of normal saline. No evidence of infiltration noted. Patient tolerated well.
[2016-07-31] MEDS ORDERED: VANCOMYCIN HCL 1,250 MG in NS 250 ML IV ONE (18:30)
[2016-07-31] MEDS ORDERED: NACL 0.9% 1,000 ML IV ONE ×2 (18:30→20:15)
[2016-07-31] MEDS ORDERED: VANCOMYCIN HCL 1000 MG/VIAL IV ONE (18:33)
[2016-07-31 18:34] LABS: BASOPHILS # (AUTO) 0.1 K/uL (0.0-0.2); BASOPHILS % (AUTO) 0.7 % (0.0-2.0); EOSINOPHILS # (AUTO) 0.2 K/uL (0.0-0.4); EOSINOPHILS % (AUTO) 2.6 % (0.0-4.0); HEMATOCRIT 41.9 % (36-54); HEMOGLOBIN 14.4 g/dL (14.0-18.0); LYMPHOCYTES % (AUTO) 22.4 % (20.5-51.5); MEAN CORPUSCULAR HEMOGLOBIN 29 pg (27-31); MEAN CORPUSCULAR HGB CONC 35 % (32-36); MEAN CORPUSCULAR VOLUME 83 fL (79.0-98.0); MONOCYTES # (AUTO) 0.6 K/uL (0.0-1.0); MONOCYTES % (AUTO) 7.3 % (1.7-9.3); NEUTROPHILS # (AUTO) 5.9 K/uL (1.8-7.7); PLATELET COUNT (AUTO) 241 K/uL (130-430); RED BLOOD CELL COUNT(AUTO) 5.04 MIL/uL (4.2-6.2); RED CELL DISTRIBUTION WIDTH 11.5 % (9.0-15.0); WHITE BLOOD COUNT (AUTO) 8.8 K/uL (4.8-10.8)
[2016-07-31 18:41] LABS: CALCIUM 8.9 mg/dL (8.4-11.0); CREATININE 1.07 mg/dL (0.55-1.30)
[2016-07-31 18:46] LABS: TOTAL BILIRUBIN 0.4 mg/dL (0.0-1.0); TOTAL PROTEIN, SERUM 7.8 g/dL (6.4-8.3)
--- NOTE | 2016-07-31 19:00 | NUR ---
Pt resting quietly, no needs verbalized at this time. Vancomycin continues to infuse at 150 mL/hr without s/s infiltration to Left Wrist PIV.
--- NOTE | 2016-07-31 19:10 | NUR ---
Dressing change to RUE PICC line using sterile technique, cleansed/scrubbed site with Alcohol provided in Cath Care kit. Antibacterial disc applied to PICC insertion site. Secured with PICC line securing device, covered with tegaderm. Lines continue to flush with mild resistence, no blood return.
[2016-07-31] MEDS ORDERED: PIPERACILLIN/TAZO 3.375 GM in NS 50 ML IV ONE (19:30)
[2016-07-31] MEDS ORDERED: PIPERACILLIN/TAZOBACTAM 3.375 GM/VIAL (ZOSYN) IV ONE (19:30)
--- NOTE | 2016-07-31 19:46 | NUR ---
Dr. Gao at bedside to discuss POC.
[2016-07-31] MEDS ORDERED: KETOROLAC TROMETHAMINE 30 MG VIAL IVP ONE (20:00)
[2016-07-31] MEDS ORDERED: VANC1.257 IV (20:35)
--- NOTE | 2016-07-31 20:36 | NUR ---
Medication reconciliation completed with information provided by pt. Any prior medication reconciliation on file was reviewed and corrected.
[2016-07-31] MEDS ORDERED: [UNRECOGNIZED DRUG - OTHER] IV SCH (21:00)
[2016-07-31] MEDS ORDERED: VANCOMYCIN IV SCH (21:00)
[2016-07-31] MEDS ORDERED: SOD CHLORIDE IV SCH (21:00)
[2016-07-31 21:37] VITALS: BP_SYST 132
--- NOTE | 2016-07-31 21:37 | NUR ---
Patient given written and verbal discharge instructions and verbalizes understanding. ER MD Archibald discussed with patient the results and treatment provided. Patient in stable condition. ID arm band removed. IV catheter removed intact and dressing applied, no active bleeding. Rx of norco given. Patient educated on pain management and to follow up with PMD. Pain Scale 0/10. Opportunity for questions provided and answered. Patient advised to return to ER of symptoms persist or getting worse.
[2016-08-01] MEDS ORDERED: metFORMIN HCL 500 MG TABLET PO SCH (08:00)
== END 2016-07-31 21:37 | disposition home or self-care (01) ==
LOC: SED 17:50
DX: E11.621 Type 2 diabetes mellitus with foot ulcer (principal)
CPT/HCPCS: 36415; 80053; 83605; 85025; 87040; 96361; 96365; 96368; 96375; 99291; J1885; J2543; J3370; J7030; J7050

== ENCOUNTER 2016-08-03 20:27 | Emergency (ER) | payer MEDICAID ==
[~2016-08-03] VITALS: Ht 188 cm; Wt 94.3 kg
[2016-08-03 20:27] VITALS: BP_SYST 158
[~2016-08-03 20:27] MED LIST changes: -HYDR-1189 PO; -LOSA25TA3 PO; -NEU100 PO; +VANC1.257 IV
--- NOTE | 2016-08-03 20:27 | NUR ---
Pt in Waiting room awaiting available bed. Stable.
--- NOTE | 2016-08-03 22:17 | NUR ---
Patient to bed 8 for evaluation. Report given to Sendy CALABRESE
--- NOTE | 2016-08-03 22:20 | NUR ---
Patient to ER for vancomycin [facility]. Patient receives Vanco for left foot healing wound, Hx diabetes and toes amputations. Left plantar foot wound is clean, dry, base is healed, no reddness, no signs of infection. Patient has a right upper arm PICC line and is requesting to have the dressing changed. Currently the dtressing is clean dry & intact. AAOx4, unlabored breathing, no signs of acute distress.
--- NOTE | 2016-08-03 22:41 | NUR ---
ER MD Elizabeth at bedside for evaluation
[2016-08-03 23:45] LABS: BASOPHILS # (AUTO) 0.1 K/uL (0.0-0.2); EOSINOPHILS # (AUTO) 0.3 K/uL (0.0-0.4); HEMOGLOBIN 13.9 g/dL (14.0-18.0); LYMPHOCYTES # (AUTO) 2.4 K/uL (1.0-5.5); MEAN CORPUSCULAR HGB CONC 34 % (32-36); NEUTROPHILS # (AUTO) 6.6 K/uL (1.8-7.7); RED CELL DISTRIBUTION WIDTH 11.6 % (9.0-15.0)
--- NOTE | 2016-08-03 23:51 | NUR ---
Patient calm in bed, awaitign results. No signs of acute distress.
[2016-08-03 23:58] LABS: CALCIUM 9.1 mg/dL (8.4-11.0); CHLORIDE 94 mmol/L (98-107); CREATININE 0.88 mg/dL (0.55-1.30); GLUCOSE 331 mg/dL (70-99); HEMATOCRIT 41.2 % (36-54); MEAN CORPUSCULAR HEMOGLOBIN 28 pg (27-31); MEAN CORPUSCULAR VOLUME 84 fL (79.0-98.0); PLATELET COUNT (AUTO) 224 K/uL (130-430); RED BLOOD CELL COUNT(AUTO) 4.91 MIL/uL (4.2-6.2); SODIUM SERUM 129 mmol/L (136-145); UREA NITROGEN, BLOOD 17 mg/dL (8-21); WHITE BLOOD COUNT (AUTO) 10.1 K/uL (4.8-10.8)
[2016-08-03 23:59] LABS: BASOPHILS % (AUTO) 0.5 % (0.0-2.0); EOSINOPHILS % (AUTO) 2.6 % (0.0-4.0); LYMPHOCYTES % (AUTO) 24.2 % (20.5-51.5); MONOCYTES # (AUTO) 0.7 K/uL (0.0-1.0); MONOCYTES % (AUTO) 7.2 % (1.7-9.3); NEUTROPHILS % (AUTO) 65.5 % (40.0-70.0)
[2016-08-04 00:04] LABS: VANCOMYCIN,TROUGH 4.7 ug/mL (5.0-10.0)
[2016-08-04 00:05] LABS: ANION GAP < 3 (5-15); GFR AFRICAN AMERICAN 122 mL/min (>90)
--- NOTE | 2016-08-04 00:06 | NUR ---
PICC line dressing changed. Aseptic techniques. Patien tolerated well.
--- NOTE | 2016-08-04 00:44 | NUR ---
Site to left plantar cleansed with NS & iodine. Site measures approximately 2cm diameter, base is clean &dry, advanced healing, no signs of infection. Gauze dressing applied. Tetanus vaccination current.
[2016-08-04 01:15] LABS: BILIRUBIN,URINE NEGATIVE (NEGATIVE); CLARITY/URINE CLEAR (CLEAR); COLOR,URINE YELLOW (YELLOW); GLUCOSE,URINE 3+ (NEGATIVE); KETONES,URINE NEGATIVE (NEGATIVE); LEUKOCYTE ESTERASE ,URINE NEGATIVE (NEGATIVE); NITRITE, URINE NEGATIVE (NEGATIVE); PROTEIN URINE TRACE (NEGATIVE); UROBILINOGEN,URINE 0.2 (0.2-1.0)
[2016-08-04 01:19] LABS: BLOOD, URINE TRACE (NEGATIVE)
[2016-08-04 01:22] VITALS: BP_SYST 126
--- NOTE | 2016-08-04 01:22 | NUR ---
Patient given written and verbal discharge instructions and verbalizes understanding. ER MD Elizabeth discussed with patient the results and treatment provided. Patient in stable condition. ID arm band removed. Patient educated on pain management and to follow up with PMD. Pain Scale 0/10. Opportunity for questions provided and answered.
[2016-08-04 01:25] LABS: BACTERIA,URINE RARE /HPF (None Seen); MUCUS,URINE None Seen /LPF (None Seen); RBC,URINE 0-3 /HPF (0-3); WBC,URINE 0-3 /HPF (0-3)
== END 2016-08-04 01:22 | disposition home or self-care (01) ==
LOC: SED 20:27
DX: Z45.2 Encounter for adjustment and management of vascular access device (principal); R10.9 Unspecified abdominal pain; E11.9 Type 2 diabetes mellitus without complications
CPT/HCPCS: 36415; 80048; 80202-TC; 81000-TC; 85025; 99284

== ENCOUNTER 2016-08-07 14:06 | Emergency (ER) | payer MEDICAID ==
[~2016-08-07] VITALS: Ht 188 cm; Wt 93.4 kg
[2016-08-07 14:21] VITALS: BP_SYST 127
--- NOTE | 2016-08-07 14:22 | NUR ---
BROUGHT BACK TO BED 3 TO GOWN FOR EXAM.
--- NOTE | 2016-08-07 14:55 | NUR ---
LAYTON MCCALL AT BEDSIDE TO JOÃO PIPER.
--- NOTE | 2016-08-07 15:10 | NUR ---
CXR DONE FOR PICC CONFIRMATION.
--- NOTE | 2016-08-07 15:30 | NUR ---
BOTH PORTS OF PICC LINE FLUSH EASILY AND PURPLE PORT HAS BLOOD RETURN. NOT RED PORT. LABS DRAWN.
[2016-08-07 16:03] LABS: BASOPHILS % (AUTO) 0.5 % (0.0-2.0); EOSINOPHILS # (AUTO) 0.2 K/uL (0.0-0.4); EOSINOPHILS % (AUTO) 2.6 % (0.0-4.0); HEMATOCRIT 41.5 % (36-54); HEMOGLOBIN 14.3 g/dL (14.0-18.0); LYMPHOCYTES # (AUTO) 1.8 K/uL (1.0-5.5); LYMPHOCYTES % (AUTO) 20.6 % (20.5-51.5); MEAN CORPUSCULAR HEMOGLOBIN 29 pg (27-31); MEAN CORPUSCULAR HGB CONC 35 % (32-36); MEAN CORPUSCULAR VOLUME 84 fL (79.0-98.0); MONOCYTES # (AUTO) 0.7 K/uL (0.0-1.0); MONOCYTES % (AUTO) 7.6 % (1.7-9.3); NEUTROPHILS # (AUTO) 6.2 K/uL (1.8-7.7); NEUTROPHILS % (AUTO) 68.7 % (40.0-70.0); PLATELET COUNT (AUTO) 228 K/uL (130-430); RED BLOOD CELL COUNT(AUTO) 4.95 MIL/uL (4.2-6.2); RED CELL DISTRIBUTION WIDTH 11.7 % (9.0-15.0); WHITE BLOOD COUNT (AUTO) 8.9 K/uL (4.8-10.8)
[2016-08-07 16:06] LABS: CALCIUM 9.2 mg/dL (8.4-11.0); CREATININE 0.98 mg/dL (0.55-1.30); POTASSIUM 4.2 mmol/L (3.5-5.1)
[2016-08-07 16:11] LABS: VANCOMYCIN,TROUGH 9.6 ug/mL (5.0-10.0)
--- NOTE | 2016-08-07 16:30 | NUR ---
Wound care done to right foot using normal saline and 4x4 with matt wrap. Right upper arm PICC line dressing changed using sterile technique. Blood return from purple port only and both ports flush easily. Pt educated on PICC line care.
[2016-08-07 17:15] VITALS: BP_SYST 130
--- NOTE | 2016-08-07 17:16 | NUR ---
Patient given written and verbal discharge instructions and verbalizes understanding. ER MD discussed with patient the results and treatment provided. Given copies of tests performed in ER. Patient in stable condition. ID arm band removed. Patient educated on pain management and to follow up with PMD. Pain Scale [0/10]. Opportunity for questions provided and answered. PT AMBULATED TO PRIVATE AUTO BY HIMSELF.
== END 2016-08-07 17:15 | disposition home or self-care (01) ==
LOC: SED 14:06
DX: Z45.2 Encounter for adjustment and management of vascular access device (principal); E11.9 Type 2 diabetes mellitus without complications; R03.0 Elevated blood-pressure reading, without diagnosis of hypertension
CPT/HCPCS: 36415; 71010; 80048; 80202-TC; 85025; 99285

== ENCOUNTER 2016-08-13 11:15 | Inpatient (IN) | payer MEDICAID ==
[~2016-08-13] VITALS: Ht 188 cm; Wt 96.6 kg
[2016-08-13 11:15] VITALS: BP_SYST 131
[2016-08-13 12:07] LABS: BASOPHILS # (AUTO) 0.1 K/uL (0.0-0.2); BASOPHILS % (AUTO) 0.8 % (0.0-2.0); EOSINOPHILS # (AUTO) 0.2 K/uL (0.0-0.4); EOSINOPHILS % (AUTO) 2.3 % (0.0-4.0); HEMATOCRIT 41.1 % (36-54); HEMOGLOBIN 14.1 g/dL (14.0-18.0); LYMPHOCYTES # (AUTO) 1.5 K/uL (1.0-5.5); LYMPHOCYTES % (AUTO) 18.5 % (20.5-51.5); MEAN CORPUSCULAR HEMOGLOBIN 29 pg (27-31); MEAN CORPUSCULAR HGB CONC 35 % (32-36); MEAN CORPUSCULAR VOLUME 84 fL (79.0-98.0); MONOCYTES # (AUTO) 0.7 K/uL (0.0-1.0); MONOCYTES % (AUTO) 8.5 % (1.7-9.3); NEUTROPHILS # (AUTO) 5.6 K/uL (1.8-7.7); NEUTROPHILS % (AUTO) 69.9 % (40.0-70.0); PLATELET COUNT (AUTO) 200 K/uL (130-430); RED CELL DISTRIBUTION WIDTH 11.6 % (9.0-15.0); WHITE BLOOD COUNT (AUTO) 8.1 K/uL (4.8-10.8)
[2016-08-13 12:16] LABS: CALCIUM 8.5 mg/dL (8.4-11.0); CHLORIDE 95 mmol/L (98-107); CREATININE 0.98 mg/dL (0.55-1.30); GFR AFRICAN AMERICAN 107 mL/min (>90); GLUCOSE 380 mg/dL (70-99); POTASSIUM 3.7 mmol/L (3.5-5.1); SODIUM SERUM 129 mmol/L (136-145); UREA NITROGEN, BLOOD 12 mg/dL (8-21)
[2016-08-13 12:20] LABS: ALANINE AMINOTRANSFERASE 21 U/L (12-78); ALBUMIN 3.6 g/dL (3.4-4.8); ASPARTATE AMINOTRANSFERASE 14 U/L (10-37); TOTAL BILIRUBIN 0.4 mg/dL (0.0-1.0); TOTAL PROTEIN, SERUM 7.2 g/dL (6.4-8.3)
[2016-08-13 12:27] VITALS: BP_SYST 146
[2016-08-13 12:28] LABS: ANION GAP < 3 (5-15)
[2016-08-13] MEDS ORDERED: GLUCOSE 15 GM GEL (in 37.5 GM TUBE) PO PRN ×2 (12:45)
[2016-08-13] MEDS ORDERED: DEXTROSE 50%-WATER 50 ML DISP.SYRIN IVP PRN ×2 (12:45)
[2016-08-13] MEDS ORDERED: ZOLPIDEM TARTRATE 5 MG TABLET PO PRN (13:45)
[2016-08-13] MEDS ORDERED: MORPHINE 2 MG/ML INJ. SYRINGE IVP PRN (13:45)
[2016-08-13] MEDS ORDERED: MAGNESIUM SULFATE 50 ML IV PRN (13:45)
[2016-08-13] MEDS ORDERED: DOCUSATE SODIUM 100 MG CAPSULE PO PRN (13:45)
[2016-08-13] MEDS ORDERED: ONDANSETRON HCL 4 MG/2 ML VIAL IVP PRN (13:45)
[2016-08-13] MEDS ORDERED: LORazepam 2 MG/ML VIAL IVP PRN (13:45)
[2016-08-13] MEDS ORDERED: POTASSIUM CHLORIDE 10 MEQ TAB.PRT.SR PO PRN (13:45)
[2016-08-13] MEDS ORDERED: ACETAMINOPHEN 325 MG TABLET PO PRN (13:45)
[2016-08-13] MEDS: VANCOMYCIN HCL 1,000 MG in NS 250 ML IV SCH ×2 (15:20→21:39)
[2016-08-13] MEDS: NACL 0.9% 1,000 ML IV SCH (15:21)
[2016-08-13 16:00] VITALS: BP_SYST 132
[2016-08-13] MEDS: INSULIN REGULAR, HUMAN 100 UNITS/ML, 10 ML VIAL (novoLIN R) SUBCUT PRN ×2 (17:49→21:39)
[2016-08-13] MEDS: metFORMIN HCL 500 MG TABLET PO SCH (18:01)
[2016-08-13 20:00] VITALS: BP_SYST 145
[2016-08-13] MEDS: HEPARIN SODIUM,PORCINE 5000 UNITS/ML VIAL SUBCUT SCH (21:00)
[2016-08-14] VITALS: BP_SYST 138
[2016-08-14] MEDS: NACL 0.9% 1,000 ML IV SCH (05:00)
[2016-08-14] MEDS: VANCOMYCIN HCL 1,000 MG in NS 250 ML IV SCH (06:01)
[2016-08-14] MEDS: INSULIN REGULAR, HUMAN 100 UNITS/ML, 10 ML VIAL (novoLIN R) SUBCUT PRN (06:42)
[2016-08-14 06:57] LABS: BASOPHILS % (AUTO) 0.5 % (0.0-2.0); EOSINOPHILS # (AUTO) 0.3 K/uL (0.0-0.4); EOSINOPHILS % (AUTO) 3.7 % (0.0-4.0); HEMATOCRIT 40.2 % (36-54); HEMOGLOBIN 13.8 g/dL (14.0-18.0); LYMPHOCYTES # (AUTO) 1.6 K/uL (1.0-5.5); LYMPHOCYTES % (AUTO) 20.1 % (20.5-51.5); MEAN CORPUSCULAR HEMOGLOBIN 29 pg (27-31); MEAN CORPUSCULAR HGB CONC 34 % (32-36); MEAN CORPUSCULAR VOLUME 84 fL (79.0-98.0); MONOCYTES # (AUTO) 0.7 K/uL (0.0-1.0); MONOCYTES % (AUTO) 8.9 % (1.7-9.3); NEUTROPHILS # (AUTO) 5.4 K/uL (1.8-7.7); NEUTROPHILS % (AUTO) 66.8 % (40.0-70.0); PLATELET COUNT (AUTO) 194 K/uL (130-430); RED BLOOD CELL COUNT(AUTO) 4.77 MIL/uL (4.2-6.2); RED CELL DISTRIBUTION WIDTH 11.7 % (9.0-15.0)
[2016-08-14 07:03] LABS: CALCIUM 8.5 mg/dL (8.4-11.0); CREATININE 0.78 mg/dL (0.55-1.30); POTASSIUM 4.1 mmol/L (3.5-5.1)
[2016-08-14 08:00] VITALS: BP_SYST 152
[2016-08-14] MEDS: metFORMIN HCL 500 MG TABLET PO SCH (08:38)
[2016-08-14] MEDS: HEPARIN SODIUM,PORCINE 5000 UNITS/ML VIAL SUBCUT SCH (08:42)
== END 2016-08-14 09:40 | disposition left against medical advice (07) | DRG 380 ==
LOC: SED 11:15 → SMU 11:54
PROVIDERS: ADMIT General Practice; ATTEND General Practice
DX: E11.621 Type 2 diabetes mellitus with foot ulcer (principal); L97.529 Non-pressure chronic ulcer of other part of left foot with unspecified severity; T82.594A Other mechanical complication of infusion catheter, initial encounter; E11.40 Type 2 diabetes mellitus with diabetic neuropathy, unspecified; E11.65 Type 2 diabetes mellitus with hyperglycemia; Z53.21 Procedure and treatment not carried out due to patient leaving prior to being seen by health care provider; Z89.422 Acquired absence of other left toe(s); Z87.891 Personal history of nicotine dependence; Z79.899 Other long term (current) drug therapy
CPT/HCPCS: 36415; 80048; 80053; 82962; 83605; 83735-TC; 85025; 87040-TC; 87081; 99285; J1644; J1815; J2270; J3370; J7030; J7050

== ENCOUNTER 2017-05-24 18:17 | Emergency (ER) | payer MEDICAID ==
[~2017-05-24] VITALS: Ht 188 cm; Wt 96.6 kg
[2017-05-24 18:22] VITALS: BP_SYST 159
[2017-05-24] MEDS ORDERED: IBUPROFEN 800 MG TABLET PO ONE (20:15)
[2017-05-24 20:30] VITALS: BP_SYST 142
== END 2017-05-24 20:30 | disposition home or self-care (01) ==
LOC: SED 18:17
DX: S16.1XXA Strain of muscle, fascia and tendon at neck level, initial encounter (principal); S39.012A Strain of muscle, fascia and tendon of lower back, initial encounter; E11.9 Type 2 diabetes mellitus without complications; Z79.899 Other long term (current) drug therapy; V43.52XA Car driver injured in collision with other type car in traffic accident, initial encounter; Y93.89 Activity, other specified; Y92.89 Other specified places as the place of occurrence of the external cause; Y99.8 Other external cause status
CPT/HCPCS: 99283

== ENCOUNTER 2018-03-11 13:46 | Emergency (ER) | payer MEDICAID ==
[~2018-03-11] VITALS: Ht 188 cm; Wt 99.8 kg
[2018-03-11 13:51] VITALS: BP_SYST 159
--- NOTE | 2018-03-11 13:53 | NUR ---
Patient to ER bed 07 to gown for evaluation. Side rails up.
--- NOTE | 2018-03-11 13:55 | NUR ---
ER at bedside examining patient.
--- NOTE | 2018-03-11 13:56 | NUR ---
Patient brought in by self complaining of insect bite to left mid back today. 1cm raised mild erythematous insect bite to left mid back noted. Patient reports history non complaince to his diabetes type 2. Denies any fevers, nausea, vomiting. No other complaints/injuries per patient or as noted. Will continue to monitor
[2018-03-11 14:20] VITALS: BP_SYST 148
--- NOTE | 2018-03-11 14:21 | NUR ---
Patient given written and verbal discharge instructions and verbalizes understanding. ER MD discussed with patient the results and treatment provided. Patient in stable condition. ID arm band removed. Rx of Clindamycin given. Patient educated on pain management and to follow up with PMD. Pain Scale 5/10 tolerable for patient . Opportunity for questions provided and answered. Medication side effect fact sheet provided.
== END 2018-03-11 14:21 | disposition home or self-care (01) ==
LOC: SED 13:46
DX: S20.462A Insect bite (nonvenomous) of left back wall of thorax, initial encounter (principal); E11.40 Type 2 diabetes mellitus with diabetic neuropathy, unspecified; W57.XXXA Bitten or stung by nonvenomous insect and other nonvenomous arthropods, initial encounter; Y93.89 Activity, other specified; Y92.89 Other specified places as the place of occurrence of the external cause; Y99.8 Other external cause status
CPT/HCPCS: 99283